=== PATIENT | male | born 1965 | race Caucasian/White ===

== ENCOUNTER → 2016-04-29 | Outpatient (CLI) | payer OTHER ==
[~2016-04-29] MED LIST: /QUET10TA; ALBU17IN INH; AMBI10TA PO; AMOX875T2 PO; CILO0.3S AS; DARV65CA; DEPA1TAB3 PO; DILA100C; DILA100C PO; FLEXERIL; HYDR25T PO; NAPR500T; PROV90AE; SERO1TAB PO; SERO1TAB2 PO; SERO400T PO; TYLETAB14 PO; VICO5TAB
--- NOTE | 2016-04-29 15:57 | REP ---
PET/CT: History: Initial staging adenocarcinoma of the lung. Comparison: Comparison chest CT study is from November 22, 2015. TECHNIQUE: 84 minutes following the intravenous injection of a 8.2 mCi dose of F-18 FDG, three-dimensional PET scintigraphy is acquired from the skull base to the proximal thighs. Triplanar noncontrast CT scanning is acquired through the same anatomic range for attenuation correction, and image registration with scan parameters optimized to minimize radiation exposure to the patient. PET scintigraphy and CT datasets were fused and displayed on a workstation with multiplanar and projection display capability. PET/CT Findings: The known right middle lobe lung mass is hypermetabolic. Maximum standard uptake value in the right middle lobe mass is 11.0. There is a small focus of sadiq hypermetabolic uptake in the right hilus with maximum standard uptake value 3.3. This corresponds to the 13 mm lymph node seen in the right hilus on chest CT study. There is mildly hypermetabolic sadiq uptake in a normal sized lymph node in the left axilla. Maximum standard uptake value in this lymph node is 3.6. There is mildly hypermetabolic uptake in the small nodule in the right lower lobe just above the right diaphragm. This nodule measures only 7 mm in diameter. Its maximum standard uptake value is 2.6. No other hypermetabolic uptake is seen. No abnormal adrenal uptake is seen. FDG is distributed normally in the abdomen and pelvis. Impression: Hypermetabolic uptake is noted in the known mass in the right middle lobe as well as in a small right hilar lymph node, a normal sized left axillary lymph node, and mildly increased uptake is seen in the small nodule in the right lower lobe of the lung as well. This nodule appears more prominent than at the time of the November 22, 2015 prior study. Signed by Asher Rosario MD 04/29/2016 08:14 P
== END ==
LOC: M RAD 07:22
PROVIDERS: ATTEND Internal Medicine Pulmonary Disease
DX: C34.2 Malignant neoplasm of middle lobe, bronchus or lung (principal)

== ENCOUNTER → 2016-05-14 | Outpatient (REF) | payer OTHER | LOC: M LAB REF 13:12 | PROVIDERS: ATTEND Physician Assistant Medical | DX: H92.12 Otorrhea, left ear (principal) ==

== ENCOUNTER → 2016-05-22 | Outpatient (CLI) | payer OTHER ==
--- NOTE | 2016-05-22 08:02 | REP ---
Clinical: Lung cancer. Follow-up. Comparison: 01/15/2016. Findings: A spiculated mass in the right middle lobe now measures approximately 3.1 cm maximal diameter and previously measured 2.8 cm maximal diameter. Multiple small nodules are also identified in the deep posterior right lower lobe measuring up to 9 mm diameter and have increased in both size and quantity from prior examination suspicious for metastatic disease/satellite lesions. Minimal scarring in the lingula, left lower lobe and basilar right middle lobe are also identified. No pleural effusion/reaction. Mild bullous/emphysematous changes are noted. The tracheobronchial tree is patent. Hilar/mediastinal adenopathy is suggested although incompletely evaluated due to the lack of intravenous contrast enhancement. Atherosclerotic changes to the coronary arteries remains stable. No pericardial effusion identified. Thoracic aorta demonstrates atherosclerotic changes without aneurysm. Surrounding musculoskeletal structures demonstrate age-related degenerative change. Upper abdomen demonstrates normal bilateral adrenal glands. Impression: 1. Spiculated primary lesion in the right middle lobe minimally increased in size from prior examination. Smaller presumed metastatic/satellite lesions at the right lung base measuring up to 9 mm have increased in both size and quantity. Mediastinal/hilar adenopathy is suggested although incompletely evaluated due to the lack of contrast. Signed by Fletcher Reddy MD 05/22/2016 07:53 A
== END ==
LOC: M RAD 06:36
PROVIDERS: ATTEND Thoracic Surgery (Cardiothoracic Vascular Surgery)
DX: Z01.818 Encounter for other preprocedural examination (principal); C34.2 Malignant neoplasm of middle lobe, bronchus or lung

== ENCOUNTER → 2016-05-22 | Outpatient (CLI) | payer OTHER ==
[2016-05-22 15:35] LABS: ABG BASE EXCESS 1.5 (-2.0-2.0); ABG HCO3 25.5 MEQ/L (22.0-26.0); ABG PARTIAL PRESSURE CO2 38.1 mmHg (35.0-45.0); ABG PARTIAL PRESSURE O2 68.3 mmHg (75.0-100.0); ABG STANDARD HCO3 25.7 MEQ/L (22.0-26.0); ABG TOTAL CO2 26.6 MEQ/L (22.0-29.0); ABG pH (ARTERIAL) 7.443 UNITS (7.350-7.450)
[2016-05-22 15:42] LABS: MEAN CORPUSCULAR HEMOGLOBIN 33.4 pg (27.0-33.0); MEAN CORPUSCULAR HGB CONC 33.4 g/dl (32.0-36.5); RED CELL DISTRIBUTION WIDTH 12.4 % (11.5-14.5)
[2016-05-22 15:46] LABS: MICROSCOPIC INDICATED? MAN NO (NO)
[2016-05-22 15:52] LABS: INR 1.02
--- NOTE | 2016-05-22 15:57 | ECGEPIP ---
Stationary ECG Study [facility] Test Date: 2016-05-22 Pat Name: COLLEEN NOWAK Department: Room: - Gender: M [employer]: : 1965 Requested By: Pa Robison Order Number: [id number] Reading MD: Jojo Harley Measurements Intervals [place] Rate: 88 P: 77 CT: 144 QRS: 77 QRSD: 94 T: 45 QT: 353 QTc: 429 Interpretive Statements SINUS RHYTHM WITH MARKED SINUS ARRHYTHMIA POSSIBLE LEFT ATRIAL ENLARGEMENT NO PRIOR Electronically Signed On 05-22-2016 15:56:55 EST by Jojo Harley
[2016-05-22 16:26] LABS: ALBUMIN/GLOBULIN RATIO 1.25 (1.00-1.93); ALKALINE PHOSPHATASE 71 U/L (45-117); ALT/SGPT 24 U/L (12-78); ANION GAP 11 MEQ/L (8-16); AST/SGOT 19 U/L (15-37); BILIRUBIN,TOTAL 0.5 MG/DL (0.2-1.0); BLOOD UREA NITROGEN 10 MG/DL (7-18); CARBON DIOXIDE LEVEL 25 MEQ/L (21-32); CHLORIDE LEVEL 102 MEQ/L (98-107); CREATININE FOR GFR 0.76 MG/DL (0.70-1.30); GLOMERULAR FILTRATION RATE > 60.0 (>56); GLUCOSE, FASTING 77 MG/DL (70-105); POTASSIUM SERUM 3.7 MEQ/L (3.5-5.1); SODIUM LEVEL 138 MEQ/L (136-145); TOTAL PROTEIN 7.2 GM/DL (6.4-8.2)
== END ==
LOC: M LAB 14:49
PROVIDERS: ATTEND Thoracic Surgery (Cardiothoracic Vascular Surgery)
DX: Z01.818 Encounter for other preprocedural examination (principal); C34.2 Malignant neoplasm of middle lobe, bronchus or lung; R94.31 Abnormal electrocardiogram [ECG] [EKG]

== ENCOUNTER → 2016-05-26 | Outpatient (CLI) | payer OTHER ==
[~2016-05-26] VITALS: Ht 182.9 cm; Wt 70.3 kg
[~2016-05-26] MED LIST changes: +BUPIVACAINE HCL 0.5% 10 ML VIAL As Ordered ONE; +BUPIVACAINE LIPOSOME/PF 1.3% 20 ML VIAL (13.3MG/ML)(EXPAREL) As Ordered ONE; +LR 1,000 ML IV SCH; +MUPIROCIN 2% OINT 22 GM TUBE TOP ONE; +ceFAZolin SOD 1 GM in D5W MINI-BAG PLUS 50 ML IV ONE
--- NOTE | 2016-05-26 08:20 | REP ---
Clinical: History of pulmonary lobectomy. Technique: PA and lateral. Comparison: 04/09/2016. Findings: There is a 3.5 x 2.0 cm ovoid density in the right mid lung zone inferior to the surgical clips. The remainder of lung reese appear relatively well aerated. Blunting to the left diaphragmatic surface likely related to prior surgery and/or chronic changes. Mediastinum and cardiac silhouette appear normal. Skeletal structures intact. Impression: 3.5 x 2.0 cm ovoid density in the right mid lung zone. Signed by Fletcher Reddy MD 05/26/2016 08:11 A
== END ==
LOC: M RAD 07:09 → UNDOADMIN 07:09 → M OR 07:09 → EDSTATUS 09:15
PROVIDERS: ATTEND Thoracic Surgery (Cardiothoracic Vascular Surgery)
DX: C34.91 Malignant neoplasm of unspecified part of right bronchus or lung (principal); Z90.2 Acquired absence of lung [part of]

== ENCOUNTER → 2016-06-03 | Outpatient (CLI) | payer OTHER ==
[~2016-06-03] MED LIST changes: -BUPIVACAINE HCL 0.5% 10 ML VIAL As Ordered ONE; -BUPIVACAINE LIPOSOME/PF 1.3% 20 ML VIAL (13.3MG/ML)(EXPAREL) As Ordered ONE; -LR 1,000 ML IV SCH; -MUPIROCIN 2% OINT 22 GM TUBE TOP ONE; -ceFAZolin SOD 1 GM in D5W MINI-BAG PLUS 50 ML IV ONE
[2016-06-03 08:05] LABS: ABG BASE EXCESS 0.4 (-2.0-2.0); ABG HCO3 24.7 MEQ/L (22.0-26.0); ABG PARTIAL PRESSURE CO2 38.8 mmHg (35.0-45.0); ABG PARTIAL PRESSURE O2 106.2 mmHg (75.0-100.0); ABG STANDARD HCO3 24.9 MEQ/L (22.0-26.0); ABG TOTAL CO2 25.9 MEQ/L (22.0-29.0); ABG pH (ARTERIAL) 7.422 UNITS (7.350-7.450); CARBOXYHEMOGLOBIN 7.6 % (0.0-1.5)
== END ==
LOC: M CARPUL 07:40
PROVIDERS: ATTEND Thoracic Surgery (Cardiothoracic Vascular Surgery)
DX: C34.2 Malignant neoplasm of middle lobe, bronchus or lung (principal); F17.218 Nicotine dependence, cigarettes, with other nicotine-induced disorders

== ENCOUNTER → 2016-06-24 | Outpatient (CLI) | payer OTHER ==
[2016-06-24 09:09] LABS: ALBUMIN 3.9 GM/DL (3.2-5.2); ALBUMIN/GLOBULIN RATIO 1.26 (1.00-1.93); ALKALINE PHOSPHATASE 56 U/L (45-117); ALT/SGPT 27 U/L (12-78); ANION GAP 11 MEQ/L (8-16); AST/SGOT 29 U/L (15-37); BILIRUBIN,TOTAL 0.2 MG/DL (0.2-1.0); BLOOD UREA NITROGEN 8 MG/DL (7-18); CALCIUM LEVEL 8.8 MG/DL (8.5-10.1); CARBON DIOXIDE LEVEL 25 MEQ/L (21-32); CHLORIDE LEVEL 103 MEQ/L (98-107); CREATININE FOR GFR 0.63 MG/DL (0.70-1.30); GLOMERULAR FILTRATION RATE > 60.0 (>56); GLUCOSE, FASTING 117 MG/DL (70-105); POTASSIUM SERUM 4.4 MEQ/L (3.5-5.1); SODIUM LEVEL 139 MEQ/L (136-145)
[2016-06-24 09:19] LABS: MEAN CORPUSCULAR HEMOGLOBIN 33.1 pg (27.0-33.0); MEAN CORPUSCULAR HGB CONC 33.2 g/dl (32.0-36.5); MEAN CORPUSCULAR VOLUME 99.5 fl (80.0-96.0); WHITE BLOOD COUNT 6.1 K/mm3 (4.0-10.0)
[2016-06-24 09:25] LABS: MICROSCOPIC INDICATED? MAN NO (NO)
[2016-06-24 09:26] LABS: INR 0.95
== END ==
LOC: M LAB 07:58
PROVIDERS: ATTEND Thoracic Surgery (Cardiothoracic Vascular Surgery)
DX: C34.2 Malignant neoplasm of middle lobe, bronchus or lung (principal); J44.9 Chronic obstructive pulmonary disease, unspecified; F17.218 Nicotine dependence, cigarettes, with other nicotine-induced disorders; Z01.818 Encounter for other preprocedural examination

== ENCOUNTER → 2016-07-08 | Outpatient (CLI) | payer OTHER ==
[2016-07-08 08:09] LABS: ABG BASE EXCESS 0.8 (-2.0-2.0); ABG HCO3 24.6 MEQ/L (22.0-26.0); ABG PARTIAL PRESSURE CO2 37.1 mmHg (35.0-45.0); ABG PARTIAL PRESSURE O2 95.1 mmHg (75.0-100.0); ABG STANDARD HCO3 25.2 MEQ/L (22.0-26.0); ABG TOTAL CO2 25.8 MEQ/L (22.0-29.0)
== END ==
LOC: M CARPUL 07:38
PROVIDERS: ATTEND Thoracic Surgery (Cardiothoracic Vascular Surgery)
DX: C34.2 Malignant neoplasm of middle lobe, bronchus or lung (principal); F17.218 Nicotine dependence, cigarettes, with other nicotine-induced disorders; Z01.812 Encounter for preprocedural laboratory examination

== ENCOUNTER → 2016-07-14 | Outpatient (CLI) | payer OTHER ==
--- NOTE | 2016-07-14 09:37 | REP ---
CT of the chest without IV contrast: Comparison is 11/22/2015. The the patient has a known right middle lobe mass today measuring 3.2 x 2.8 centimeters on image 57 (previously 2.9 x 2.3 cm). Additionally there are at least eight small nodules in the deep posterior sulcus of the right lung today, not present previously, ranging from 5 mm to 9 mm in size. There is a 6 mm nodule along the major fissure on the right on image 47, not present previously. No other lung nodules or masses are identified. There are no acute infiltrates or effusions. There is linear scarring in the deep sulcus of the left lower lobe, right middle lobe and inferior tip of the lingula. This is unchanged. There is a large subcarinal mediastinal node measuring 17 mm today (9 mm previously). There are a few other nonenlarged mediastinal nodes, not significantly changed. On the comparison study there was right hilar lymph node enlargement. The current study is insensitive for evaluation of hilar nodes in the absence of IV contrast. There are a few surgical benny in the right lung, superior and slightly posterior to the right lung mass as an interval change. The unenhanced thoracic aorta is unremarkable. Cardiac size is normal. There is no pericardial effusion. Upper abdomen: There is no adrenal mass. Visualized portions of the unenhanced liver, gallbladder, pancreas and spleen are unremarkable. Impression: The right middle lobe mass has increased in size. There are least nine new small nodules in the deep sulcus of the right lower lobe. There are a few surgical benny in the right mid lung as an interval change. The subcarinal nodes have increased in size. The right hilar nodes cannot be assessed in the absence of IV contrast. Signed by Manuel Jesus MD 07/14/2016 09:27 A
== END ==
LOC: M RAD 07:17
PROVIDERS: ATTEND Thoracic Surgery (Cardiothoracic Vascular Surgery)
DX: C34.2 Malignant neoplasm of middle lobe, bronchus or lung (principal)

== ENCOUNTER → 2016-07-17 | Outpatient (CLI) | payer OTHER ==
[2016-07-17 12:44] LABS: ABG BASE EXCESS -0.6 (-2.0-2.0); ABG HCO3 23.3 MEQ/L (22.0-26.0); ABG PARTIAL PRESSURE CO2 36.4 mmHg (35.0-45.0); ABG PARTIAL PRESSURE O2 87.4 mmHg (75.0-100.0); ABG TOTAL CO2 24.5 MEQ/L (22.0-29.0); ABG pH (ARTERIAL) 7.425 UNITS (7.350-7.450)
--- NOTE | 2016-07-17 13:42 | REP ---
PA and lateral chest: Comparisons are the PA and lateral chest of 05/26/[address] of 07/14/2016. The patient's known right lung mass is again identified, not significantly changed. There to surgical clips in the right upper lobe, unchanged. There is chronic effacement of the left costophrenic angle, unchanged. There are no acute infiltrates or effusions. By CT of least nine in new small nodules were noted in the deep posterior sulcus of the right lower lobe. These are not visible on the PA and lateral views of the chest. Impression: There are no acute infiltrates or effusions. The patient's known right lung mass is again identified. There i chronic effacement of the left costophrenic angle, unchanged. Signed by Manuel Jesus MD 07/17/2016 01:33 P
[2016-07-17 13:48] LABS: MEAN CORPUSCULAR HEMOGLOBIN 33.1 pg (27.0-33.0); MEAN CORPUSCULAR HGB CONC 32.7 g/dl (32.0-36.5); MEAN CORPUSCULAR VOLUME 101.2 fl (80.0-96.0); RED CELL DISTRIBUTION WIDTH 13.4 % (11.5-14.5); WHITE BLOOD COUNT 6.2 K/mm3 (4.0-10.0)
[2016-07-17 13:51] LABS: INR 0.97
[2016-07-17 13:58] LABS: ANION GAP 6 MEQ/L (8-16); BLOOD UREA NITROGEN 10 MG/DL (7-18); CALCIUM LEVEL 9.2 MG/DL (8.5-10.1); CARBON DIOXIDE LEVEL 31 MEQ/L (21-32); CHLORIDE LEVEL 103 MEQ/L (98-107); CREATININE FOR GFR 0.57 MG/DL (0.70-1.30); GLOMERULAR FILTRATION RATE > 60.0 (>56); GLUCOSE, FASTING 86 MG/DL (70-105); POTASSIUM SERUM 4.5 MEQ/L (3.5-5.1); SODIUM LEVEL 140 MEQ/L (136-145)
== END ==
LOC: EDSTATUS 07-10 11:00 → M ADMPAT 11:19
PROVIDERS: ATTEND Thoracic Surgery (Cardiothoracic Vascular Surgery)
DX: Z01.818 Encounter for other preprocedural examination (principal); C34.2 Malignant neoplasm of middle lobe, bronchus or lung

== ENCOUNTER → 2016-07-22 | Outpatient (CLI) | payer OTHER ==
[~2016-07-22] MED LIST changes: +PERCOCET PO
--- NOTE | 2016-07-23 08:41 | REP ---
PET/CT: HISTORY: Lung cancer restaging. Adenocarcinoma right middle lobe. Comparison PET-CT study April 29, 2016. Comparison CT examination of the chest July 14, 2016. TECHNIQUE: 58 minutes following the intravenous injection of a 7.6 mCi dose of F-18 FDG, three-dimensional PET scintigraphy is acquired from the skull base to the proximal thighs. Triplanar noncontrast CT scanning is acquired through the same anatomic range for attenuation correction, and image registration with scan parameters optimized to minimize radiation exposure to the patient. PET scintigraphy and CT datasets were fused and displayed on a workstation with multiplanar and projection display capability. PET/CT FINDINGS: The right middle lobe mass remains hypermetabolic, maximum standard uptake value today 13.4, previously 11.0. It measures 3.3 cm today. The previously noted sadiq focus in the right hilus is more prominent and more hypermetabolic on today's PET CT study. Maximum standard uptake value in the right hilar sadiq focus is 9.4, previously 3.3. The 9 mm nodule medially in the right lower lobe shows mildly hypermetabolic uptake today, maximum standard uptake value 3.1. This is increased in size from the prior study. The FDG accumulation is a new finding. Multiple small nodules are again seen in the right lower lobe. These are more numerous and more prominent in size. The largest of these has maximum SUV value of 2.7, which is mildly hypermetabolic. It measures 8 mm in diameter. There is a biopsy marker clip in the right upper lobe as before. No other intrathoracic hypermetabolic uptake is seen. Head and neck soft tissues are unremarkable. No abnormal adrenal FDG accumulation is seen. No abnormal uptake is seen in the abdomen or pelvis. The previously noted left axillary sadiq uptake is resolved. IMPRESSION: Hypermetabolic uptake in right middle lobe mass, a right hilar metastatic node, and in at least two of the multiple right lower lobe pulmonary nodules. These have progressed in size and number. Signed by Asher Rosario MD 07/23/2016 01:09 P
== END ==
LOC: M RAD 16:20
PROVIDERS: ATTEND Thoracic Surgery (Cardiothoracic Vascular Surgery)
DX: C34.2 Malignant neoplasm of middle lobe, bronchus or lung (principal); R22.2 Localized swelling, mass and lump, trunk
CPT/HCPCS: 78815; A9552

== ENCOUNTER → 2016-08-03 | Outpatient (CLI) | payer OTHER ==
--- NOTE | 2016-08-03 08:38 | REP ---
Clinical: Right middle lobe malignancy. Technique: PA and lateral. Comparison: 07/27/2016. Findings: Ovoid lesion in the right middle lobe is unchanged. Superior to the lesion are two surgical clips able in position. Blunting to the bilateral diaphragmatic surfaces and costophrenic angles suggests acute / chronic pleural reactions. No pneumothorax. Mediastinum and cardiac silhouette stable. Skeletal structures intact. Impression: Ovoid lesion in the right middle lobe and blunting to the diaphragmatic surfaces/costophrenic angles similar to prior examination. Signed by Fletcher Reddy MD 08/03/2016 08:30 A
== END ==
LOC: M SMT 07:53
PROVIDERS: ATTEND Thoracic Surgery (Cardiothoracic Vascular Surgery)
DX: C34.2 Malignant neoplasm of middle lobe, bronchus or lung (principal); R91.8 Other nonspecific abnormal finding of lung field; J98.6 Disorders of diaphragm

== ENCOUNTER → 2016-09-10 | Outpatient (CLI) | payer OTHER ==
--- NOTE | 2016-09-11 02:04 | REP ---
Clinical: Malignancy. Technique: PA and lateral. Comparison: 08/03/2016. Findings: Rounded mass with adjacent subtle opacity in the right mid lung zone is similar in appearance to prior examination although may be minimally decreased in size. Remainder of the bilateral lung reese are stable and without further acute process. Postsurgical changes are appreciated. Mediastinum and cardiac silhouette normal. No pneumothorax. Skeletal structures intact. Impression: Rounded mass lesion with adjacent subtle opacity similar to prior examination although minimally decreased in size. Signed by Fletcher Reddy MD 09/11/2016 01:56 A
== END ==
LOC: M SMT 09:48
PROVIDERS: ATTEND Thoracic Surgery (Cardiothoracic Vascular Surgery)
DX: C34.2 Malignant neoplasm of middle lobe, bronchus or lung (principal)

== ENCOUNTER → 2016-10-19 | Outpatient (REF) | payer OTHER ==
[~2016-10-19] MED LIST changes: +HYDR-3363 PO; -HYDR25T PO
== END ==
LOC: M LAB REF 13:45
PROVIDERS: ATTEND Internal Medicine Medical Oncology
DX: C34.90 Malignant neoplasm of unspecified part of unspecified bronchus or lung (principal)

== ENCOUNTER → 2016-11-17 | Outpatient (CLI) | payer OTHER ==
[~2016-11-17] MED LIST changes: +ISOVUE-370 76% 100ML VIAL (Q9967) As Ordered ONE
--- NOTE | 2016-11-17 11:36 | REP ---
CT ABDOMEN AND PELVIS WITH AND WITHOUT CONTRAST: TECHNIQUE: Axial noncontrast images through the abdomen followed by contrast-enhanced images through the abdomen and pelvis using 100 mL Isovue 370 intravenous contrast material, with coronal and sagittal reformations. The liver, spleen, adrenals, pancreas and kidneys are normal in appearance with no mass. No renal or ureteral calculi are seen and there is no hydroureteronephrosis. There is no abdominal aortic aneurysm with mild to moderate scattered atherosclerotic calcifications. There is no significant adenopathy in the abdomen or pelvis. No free air or free fluid is seen. No bowel wall thickening is seen. No pelvic mass is seen. The urinary bladder appears unremarkable. IMPRESSION: Negative CT abdomen and pelvis with and without contrast. Signed by Manuel Pena MD 11/17/2016 11:59 A
--- NOTE | 2016-11-17 11:41 | REP ---
CT CHEST WITH IV CONTRAST: TECHNIQUE: Axial contrast enhanced images from the thoracic inlet to the upper abdomen using 100 mL Isovue 370 intravenous contrast material with multiplanar reformations. COMPARISON: 07/14/2016 The irregularly marginated oval parenchymal opacity in the right middle lobe region has decreased in size since the prior exam with a more concave anterior and superior margin. It measures approximately 1.2 x 2.4 x 2.8 cm, previously 1.6 x 2.8 x 3.3 cm. It appears somewhat less solid compared to the prior study. The previously noted medially located 9 mm nodule in the superior segment of the right lower lobe is no longer visualized. Suture line is seen in the right posterolateral costophrenic sulcus presumably following wedge resection for multiple nodules previously seen in that region. There are scattered linear areas of parenchymal scarring. No new nodules are seen in either lung. Subcentimeter lymph nodes are seen in both axillary regions. Severe subcentimeter mediastinal lymph nodes are also seen. There is a 1 cm subcarinal lymph node and a 1.3 cm right hilar lymph node which are both stable. The heart is not enlarged. There is no pleural or pericardial effusion. There is no thoracic aortic aneurysm with mild scattered atherosclerotic calcifications. There are degenerative changes of the spine. IMPRESSION: The patient appears to be status post wedge resection of multiple small nodules in the right lower lobe, posterolateral costophrenic sulcus with a suture line seen in that region. The previously noted oval parenchymal mass-like opacity in the right middle lobe appears less solid and has diminished in size. Previously noted nodule in the superior segment of the right lower lobe is no longer visualized. No new nodules or adenopathy are seen. Signed by Manuel Pena MD 11/17/2016 12:00 P
== END ==
LOC: M RAD 10:13
PROVIDERS: ATTEND Internal Medicine Medical Oncology
DX: C34.90 Malignant neoplasm of unspecified part of unspecified bronchus or lung (principal); Z90.2 Acquired absence of lung [part of]; R91.8 Other nonspecific abnormal finding of lung field
CPT/HCPCS: 71260; 74178; Q9967

== ENCOUNTER → 2016-12-02 | Outpatient (REF) | payer OTHER ==
[~2016-12-02] MED LIST changes: -ISOVUE-370 76% 100ML VIAL (Q9967) As Ordered ONE
== END ==
LOC: M LAB REF 14:07
PROVIDERS: ATTEND Internal Medicine Medical Oncology
DX: C34.90 Malignant neoplasm of unspecified part of unspecified bronchus or lung (principal)

== ENCOUNTER → 2016-12-23 | Outpatient (REF) | payer OTHER ==
[2016-12-23 13:53] LABS: INR 0.93
== END ==
LOC: M LAB REF 12:46
PROVIDERS: ATTEND Internal Medicine Medical Oncology
DX: C34.90 Malignant neoplasm of unspecified part of unspecified bronchus or lung (principal)

== ENCOUNTER → 2016-12-28 | Outpatient (CLI) | payer OTHER ==
[2016-12-28 10:56] LABS: MEAN CORPUSCULAR HEMOGLOBIN 38.3 pg (27.0-33.0); MEAN CORPUSCULAR HGB CONC 35.6 g/dl (32.0-36.5); MEAN CORPUSCULAR VOLUME 107.5 fl (80.0-96.0); RED CELL DISTRIBUTION WIDTH 12.9 % (11.5-14.5); WHITE BLOOD COUNT 8.2 K/mm3 (4.0-10.0)
[2016-12-28 11:14] LABS: ANION GAP 9 MEQ/L (8-16); BLOOD UREA NITROGEN 5 MG/DL (7-18); CALCIUM LEVEL 9.1 MG/DL (8.5-10.1); CARBON DIOXIDE LEVEL 31 MEQ/L (21-32); CHLORIDE LEVEL 97 MEQ/L (98-107); CREATININE FOR GFR 0.59 MG/DL (0.70-1.30); GLOMERULAR FILTRATION RATE > 60.0 (>56); GLUCOSE, FASTING 93 MG/DL (70-105); POTASSIUM SERUM 3.5 MEQ/L (3.5-5.1); SODIUM LEVEL 137 MEQ/L (136-145)
--- NOTE | 2016-12-28 11:31 | REP ---
PA and lateral chest: Comparison is 09/10/2016. There is a right middle lobe lung nodule today measuring 10 mm craniocaudad (previously 15 mm craniocaudad). There is linear stranding emanating from the medial lateral borders of this nodule obscuring these borders. 2. Tiny surgical clips in the right upper lobe, as previously. There are no acute infiltrates. There is mild effacement right costophrenic angle and is effacement left costophrenic angle. These findings are unchanged. Cardiac size is normal. The sandy, mediastinum, and bony thorax are changed. Impression: The patient's known right middle lobe lung nodule appears to have decreased in craniocaudad diameter. The medial lateral margins are obscured by linear stranding. There are other chronic changes as described. Signed by Manuel Jesus MD 12/28/2016 11:23 A
--- NOTE | 2016-12-28 21:42 | ECGEPIP ---
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
== END ==
LOC: M LAB 10:01
PROVIDERS: ATTEND Thoracic Surgery (Cardiothoracic Vascular Surgery)
DX: Z01.818 Encounter for other preprocedural examination (principal); C34.90 Malignant neoplasm of unspecified part of unspecified bronchus or lung

== ENCOUNTER 2017-01-01 09:33 | Day surgery (SDC) | payer OTHER ==
[~2017-01-01] VITALS: Ht 182.9 cm; Wt 76.7 kg
[2017-01-01] MEDS ORDERED: LIDOCAINE 1% MDV 20ML VIAL SQ ONE (09:45)
[2017-01-01] MEDS ORDERED: LR 1,000 ML IV ONE (09:45)
[2017-01-01] MEDS ORDERED: MUPIROCIN 2% OINT 22 GM TUBE TOP ONE (09:45)
[2017-01-01] MEDS ORDERED: MIDAZOLAM INJ 2 MG/2 ML VIAL (J2250) As Ordered ONE (11:32)
[2017-01-01] MEDS ORDERED: fentaNYL 100 MCG/2 ML INJECTION (J3010) As Ordered ONE (11:33)
[2017-01-01] MEDS ORDERED: LIDOCAINE 1% SDV INJ 30 ML VIAL As Ordered ONE (11:40)
[2017-01-01] MEDS ORDERED: HEPARIN SOD (PORCINE) 5000 UNITS/ML VIAL As Ordered ONE (11:40)
[2017-01-01] MEDS ORDERED: BUPIVACAINE LIPOSOME/PF 1.3% 20 ML VIAL (13.3MG/ML)(EXPAREL) As Ordered ONE (11:40)
[2017-01-01] MEDS ORDERED: LIDOCAINE 2% INJ 100 MG/5 ML SDV (FOR ANES.) As Ordered ONE (12:44)
[2017-01-01] MEDS ORDERED: PROPOFOL 200 MG/20 ML VIAL As Ordered ONE (12:44)
[2017-01-01 13:35] VITALS: BP 162/91
--- NOTE | 2017-01-01 13:38 | REP ---
C-ARM VIEWS OF THE CHEST: Two C-arm views of the chest are performed during Medi-Port catheter placement. The Medi-Port catheter is visualized and the tip appears to be in the region of the junction of the superior vena cava and right atrium. 12 seconds fluoroscopy time utilized. Signed by Manuel Pena MD 01/01/2017 02:26 P
--- NOTE | 2017-01-01 13:40 | REP ---
PORTABLE CHEST: AP portable view of the chest is performed. COMPARISON: 12/28/2016. There is placement of a left sided Medi-Port catheter in the subclavian region with the tip of the catheter at the junction of the superior vena cava and right atrium. There is no pneumothorax. There is blunting of the left costophrenic angle which is unchanged. Ill-defined parenchymal opacities in the right lung base are stable. Cardiomediastinal silhouette is unchanged. Signed by Manuel Pena MD 01/01/2017 02:26 P
--- NOTE | 2017-01-01 14:43 | RO ---
DATE OF PROCEDURE: 01/01/2017 PREPROCEDURE DIAGNOSIS: Lung cancer, need for vascular access and chemotherapy. POSTPROCEDURE DIAGNOSIS: Lung cancer, need for vascular access and chemotherapy. PROCEDURE: Insertion of left subclavian [id number]-[id number] with fluoroscopic control. SURGEON: Dr. Pa Anne NAIL TECHNICIAN: ANESTHESIA: FINDINGS: All contours were smooth at the end of the procedure. Catheter was placed within the right atrium by fluoroscopic control. DESCRIPTION OF PROCEDURE: Under satisfactory MAC anesthesia, the patient was prepped and draped in the usual sterile fashion. The infraclavicular fossa was infiltrated with 1% lidocaine and the vein was found on the first pass. The wire was placed without difficulty and the position was confirmed by fluoroscopy. The port incision was decided and incision was made and a subcutaneous pocket created by use of electrocautery and sharp and blunt dissection. An introducer was then placed to dilate over the wire and then a peel-away introducer was placed. Wire was removed and the catheter was placed with low numbers down. The introducer was peeled away and a tunnel was created between the catheter site and the port site. Catheter was pulled through the tunnel and positioned by fluoroscopic control. The catheter was cut to an appropriate size, the collar was placed and connected the [id number]-[id number]-Srze. Mkujlq-O-Iaqf was aspirated and flushed without difficulty. [id number]-G-[id number] was then secured to the chest wall with two #2-0 silk sutures. A final flush was made, again aspirated and then flushed with 100 units per mL of heparin. The subcutaneous tissue was then closed with a running #3-0 Vicryl suture and the skin was closed with a running subcuticular #4-0 Monocryl suture. Patient tolerated the procedure well and let the operating room in satisfactory condition.
== END 2017-01-01 13:40 | disposition home or self-care (01) ==
LOC: M SDC 09:33
PROVIDERS: ATTEND Thoracic Surgery (Cardiothoracic Vascular Surgery)
DX: C34.90 Malignant neoplasm of unspecified part of unspecified bronchus or lung (principal); Z45.2 Encounter for adjustment and management of vascular access device; R06.02 Shortness of breath; R56.9 Unspecified convulsions; F31.9 Bipolar disorder, unspecified; Z79.899 Other long term (current) drug therapy
CPT/HCPCS: 36561; 71010; 76000; C1788

== ENCOUNTER → 2017-03-31 | Outpatient (REF) | payer OTHER | LOC: M LAB REF 13:03 | PROVIDERS: ATTEND Nurse Practitioner Women's Health | DX: H72.02 Central perforation of tympanic membrane, left ear (principal) ==

== ENCOUNTER → 2017-04-14 | Outpatient (CLI) | payer OTHER ==
[~2017-04-14] MED LIST changes: -/QUET10TA; -ALBU17IN INH; -AMBI10TA PO; -AMOX875T2 PO; -CILO0.3S AS; -DARV65CA; -DEPA1TAB3 PO; -DILA100C; -DILA100C PO; -FLEXERIL; +GASTROGRAFIN SOLUTION 30ML (Q9963) As Ordered; -HYDR-3363 PO; +ISOVUE-370 76% 100ML VIAL (Q9967) As Ordered; -NAPR500T; -PERCOCET PO; -PROV90AE; -SERO1TAB PO; -SERO1TAB2 PO; -SERO400T PO; -TYLETAB14 PO; -VICO5TAB
== END ==
LOC: M RAD 07:49
DX: C34.91 Malignant neoplasm of unspecified part of right bronchus or lung (principal); J90 Pleural effusion, not elsewhere classified
CPT/HCPCS: Q9963

== ENCOUNTER → 2017-04-27 | Outpatient (REF) | payer OTHER | LOC: M LAB REF 13:27 | DX: C34.90 Malignant neoplasm of unspecified part of unspecified bronchus or lung (principal) ==

== ENCOUNTER → 2017-05-18 | Outpatient (REF) | payer OTHER ==
[2017-05-18 15:55] LABS: CARCINOEMBRYONIC ANTIGEN 1.3 NG/ML (<2.5)
== END ==
LOC: M LAB REF 13:51
DX: C34.90 Malignant neoplasm of unspecified part of unspecified bronchus or lung (principal)

== ENCOUNTER → 2017-06-14 | Outpatient (CLI) | payer OTHER ==
[~2017-06-14] MED LIST changes: -GASTROGRAFIN SOLUTION 30ML (Q9963) As Ordered
== END ==
LOC: M RAD 07:05
DX: C34.90 Malignant neoplasm of unspecified part of unspecified bronchus or lung (principal); J90 Pleural effusion, not elsewhere classified
CPT/HCPCS: Q9967

== ENCOUNTER → 2017-06-24 | Outpatient (REF) | payer OTHER ==
[2017-06-24 13:35] LABS: INR 0.86; PROTHROMBIN TIME 11.8 SECONDS (12.4-14.5)
[2017-06-24 13:36] LABS: PARTIAL THROMBOPLASTIN TIME 30.1 SECONDS (26.8-37.9)
== END ==
LOC: M LAB REF 13:11
DX: C34.90 Malignant neoplasm of unspecified part of unspecified bronchus or lung (principal)

== ENCOUNTER 2017-07-01 03:43 | Emergency (ER) | payer OTHER ==
[2017-07-01 04:14] LABS: BASO # 0.1 10^3/uL (0.0-0.2); BASO % 0.7 % (0.0-1.0); EOS # 0.1 10^3/uL (0.0-0.50); EOS % 0.9 % (0.0-3.0); HEMATOCRIT 42.6 % (42.0-52.0); HEMOGLOBIN 15.2 g/dl (14.0-18.0); IMMATURE GRANULOCYTE % 0.5 % (0-3.0); LYMPH # 1.2 10^3/uL (1.5-4.5); LYMPH % 15.8 % (24.0-44.0); MEAN CORPUSCULAR HEMOGLOBIN 35.4 pg (27.0-33.0); MEAN CORPUSCULAR HGB CONC 35.7 g/dl (32.0-36.5); MEAN CORPUSCULAR VOLUME 99.3 fl (80.0-96.0); MONO # 0.7 10^3/uL (0.0-0.8); MONO % 8.7 % (0.0-5.0); NEUTROPHILS # 5.5 10^3/uL (1.8-7.7); NEUTROPHILS % 73.4 % (36.0-66.0); PLATELET COUNT, AUTOMATED 247 10^3/uL (150-450); RED BLOOD COUNT 4.29 10^6/uL (4.30-6.10); RED CELL DISTRIBUTION WIDTH 11.9 % (11.5-14.5); WHITE BLOOD COUNT 7.6 10^3/uL (4.0-10.0)
[2017-07-01 04:24] LABS: INR 0.87; PROTHROMBIN TIME 11.9 SECONDS (12.4-14.5)
[2017-07-01 04:40] LABS: ALBUMIN 3.8 GM/DL (3.2-5.2); ALBUMIN/GLOBULIN RATIO 0.86 (1.00-1.93); ALKALINE PHOSPHATASE 110 U/L (45-117); ALT/SGPT 29 U/L (12-78); ANION GAP 11 MEQ/L (8-16); AST/SGOT 29 U/L (7-37); BILIRUBIN,DIRECT 0.2 MG/DL (0.0-0.2); BILIRUBIN,TOTAL 0.5 MG/DL (0.2-1.0); BLOOD UREA NITROGEN 7 MG/DL (7-18); CALCIUM LEVEL 9.1 MG/DL (8.5-10.1); CARBON DIOXIDE LEVEL 25 MEQ/L (21-32); CHLORIDE LEVEL 101 MEQ/L (98-107); CPK CREATINE PHOSPHOKINASE 58 U/L (39-308); CREATININE FOR GFR 0.55 MG/DL (0.70-1.30); GLOMERULAR FILTRATION RATE > 60.0 (>56); GLUCOSE, FASTING 96 MG/DL (70-100); LIPASE 97 U/L (73-393); POTASSIUM SERUM 3.8 MEQ/L (3.5-5.1); SODIUM LEVEL 137 MEQ/L (136-145); TOTAL PROTEIN 8.2 GM/DL (6.4-8.2); TROPONIN I < 0.02 NG/ML (< 0.10)
[2017-07-01 04:45] LABS: CK-MB VALUE MASS < 1.0 NG/ML (<3.6); MB/CK RELATIVE INDEX 1.72 (< OR =4)
[2017-07-01] MEDS ORDERED: ISOVUE-370 76% 100ML VIAL (Q9967) As Ordered (05:32)
== END 2017-07-01 07:21 | disposition home or self-care (01) ==
LOC: M ED 03:43
DX: J90 Pleural effusion, not elsewhere classified (principal); J44.9 Chronic obstructive pulmonary disease, unspecified; K21.9 Gastro-esophageal reflux disease without esophagitis; F20.9 Schizophrenia, unspecified; F41.9 Anxiety disorder, unspecified; Z85.118 Personal history of other malignant neoplasm of bronchus and lung; Z79.899 Other long term (current) drug therapy; Z92.21 Personal history of antineoplastic chemotherapy; Z87.891 Personal history of nicotine dependence
CPT/HCPCS: Q9967

== ENCOUNTER → 2017-07-02 | Outpatient (CLI) | payer OTHER ==
[~2017-07-02] MED LIST changes: +ACETAMINOPHEN 325 MG TAB As Ordered; -ISOVUE-370 76% 100ML VIAL (Q9967) As Ordered; +LIDOCAINE 1% MDV 20ML VIAL As Ordered
== END ==
LOC: M RADPRO 12:13
DX: J90 Pleural effusion, not elsewhere classified (principal); Z85.118 Personal history of other malignant neoplasm of bronchus and lung; Z79.899 Other long term (current) drug therapy
CPT/HCPCS: 32555

== ENCOUNTER → 2017-09-20 | Outpatient (REF) | payer OTHER, MEDICAID | LOC: M LAB REF 13:01 | DX: H92.12 Otorrhea, left ear (principal); H66.92 Otitis media, unspecified, left ear ==

== ENCOUNTER → 2017-10-19 | Outpatient (REF) | payer OTHER ==
[2017-10-19 14:09] LABS: CARCINOEMBRYONIC ANTIGEN 0.5 NG/ML (<2.5)
== END ==
LOC: M LAB REF 13:41
DX: C78.02 Secondary malignant neoplasm of left lung (principal); C34.91 Malignant neoplasm of unspecified part of right bronchus or lung; J91.0 Malignant pleural effusion
CPT/HCPCS: 82378

== ENCOUNTER → 2017-10-27 | Outpatient (REF) | payer OTHER | LOC: M LAB REF 14:02 | DX: C34.91 Malignant neoplasm of unspecified part of right bronchus or lung (principal) ==

== ENCOUNTER → 2017-11-09 | Outpatient (REF) | payer OTHER ==
[2017-11-09 14:23] LABS: CARCINOEMBRYONIC ANTIGEN 0.5 NG/ML (<2.5)
== END ==
LOC: M LAB REF 13:35
DX: C78.02 Secondary malignant neoplasm of left lung (principal); C34.91 Malignant neoplasm of unspecified part of right bronchus or lung; J91.0 Malignant pleural effusion
CPT/HCPCS: 82378

== ENCOUNTER → 2017-11-12 | Outpatient (CLI) | payer OTHER ==
[~2017-11-12] MED LIST changes: -ACETAMINOPHEN 325 MG TAB As Ordered; +GASTROGRAFIN SOLUTION 30ML (Q9963) As Ordered; +ISOVUE-370 76% 100ML VIAL (Q9967) As Ordered; -LIDOCAINE 1% MDV 20ML VIAL As Ordered
== END ==
LOC: M RAD 07:58
DX: C34.90 Malignant neoplasm of unspecified part of unspecified bronchus or lung (principal); D18.03 Hemangioma of intra-abdominal structures
CPT/HCPCS: Q9963

== ENCOUNTER → 2017-11-30 | Outpatient (REF) | payer OTHER ==
[2017-11-30 14:03] LABS: CARCINOEMBRYONIC ANTIGEN 0.9 NG/ML (<2.5)
== END ==
LOC: M LAB REF 13:16
DX: C78.02 Secondary malignant neoplasm of left lung (principal); C34.91 Malignant neoplasm of unspecified part of right bronchus or lung; J91.0 Malignant pleural effusion; L27.0 Generalized skin eruption due to drugs and medicaments taken internally
CPT/HCPCS: 82378

== ENCOUNTER → 2017-12-02 | Outpatient (REF) | payer OTHER | LOC: M LAB REF 12:20 | DX: H92.12 Otorrhea, left ear (principal) ==

== ENCOUNTER → 2017-12-31 | Outpatient (REF) | payer OTHER | LOC: M LAB REF 12:03 | DX: H66.3X2 Other chronic suppurative otitis media, left ear (principal) ==

== ENCOUNTER → 2018-01-18 | Outpatient (CLI) | payer OTHER ==
[~2018-01-18] MED LIST changes: -GASTROGRAFIN SOLUTION 30ML (Q9963) As Ordered
== END ==
LOC: M RAD 07:51
DX: C34.91 Malignant neoplasm of unspecified part of right bronchus or lung (principal); R59.0 Localized enlarged lymph nodes; J90 Pleural effusion, not elsewhere classified
CPT/HCPCS: Q9967

== ENCOUNTER → 2018-03-15 | Outpatient (CLI) | payer OTHER | LOC: M RAD 11:16 | DX: R06.09 Other forms of dyspnea (principal); R07.89 Other chest pain; J90 Pleural effusion, not elsewhere classified; J84.10 Pulmonary fibrosis, unspecified; R91.8 Other nonspecific abnormal finding of lung field | CPT/HCPCS: Q9967 ==

== ENCOUNTER → 2018-03-25 | Outpatient (CLI) | payer OTHER ==
[~2018-03-25] MED LIST changes: +/QUET10TA; +ALBU17IN INH; +AMBI10TA PO; +AMOX875T2 PO; +CILO0.3S AS; +DARV65CA; +DEPA1TAB3 PO; +DEXA4TA; +DEXA4TA PO; +DILA100C; +DILA100C PO; +DOXY100T16 PO; +FLEXERIL; +HYDR-3363 PO; +IBUP1TAB7 PO; +IBUP80TA PO; -ISOVUE-370 76% 100ML VIAL (Q9967) As Ordered; +NAPR500T; +NEOM1SOL17 AD; +OXYC-517; +PERCOCET PO; +PROHANCE 279.3MG/ML 15ML VIAL (A9576) As Ordered ONE; +PROV90AE; +SERO1TAB PO; +SERO1TAB2 PO; +SERO400T PO; +TYLETAB14 PO; +VENTAER INH; +VICO5TAB; +ZANTTAB PO; +ZOLP10TA2 PO
--- NOTE | 2018-03-25 16:19 | REP ---
MR BRAIN WITHOUT AND WITH CONTRAST: HISTORY: Lung carcinoma. CONTRAST: ProHance 15 mL. COMPARISON: 01/31/2016. Multiple enhancing nodular lesions are present in the cerebral hemispheres and cerebellum. These range in size from 0.1 to 1.7 cm. The largest supratentorial lesion present in the left parietal lobe measures 1.2 cm. The largest posterior fossa lesion in the left cerebellum measures 1.7 cm. A small amount of edema is present surrounding the larger lesions. There is no intraparenchymal hemorrhage, infarct or midline shift. The ventricular system and cortical sulci are dilated consistent with minimal volume loss. There is no extra cerebral collection. The sinuses are clear. IMPRESSION: There are multiple enhancing metastatic lesions in the cerebral hemispheres and cerebellum. There is no midline shift. Electronically Signed by Chandler Galindo MD 03/25/2018 04:24 P
== END ==
LOC: M RAD 13:39
PROVIDERS: ATTEND Nurse Practitioner Family
DX: R51 Headache (principal); C34.90 Malignant neoplasm of unspecified part of unspecified bronchus or lung
CPT/HCPCS: 70553; A9576

== ENCOUNTER → 2018-03-29 | Outpatient (CLI) | payer OTHER ==
[~2018-03-29] MED LIST changes: -PROHANCE 279.3MG/ML 15ML VIAL (A9576) As Ordered ONE
--- NOTE | 2018-03-29 18:44 | MEDONC ---
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 Here for results of brain MRI showing new intracranial metastases. 2. Post thoracotomy pain improved on Gabapentin right thorax extending from shoulder to right flank. 3. Treatment induced rash, likely secondary to ramucirumab involving arms buttocks, chest October 2017 resolved ramucirumab resumed without recurrent rash. CURRENT THERAPY: Docetaxel/ramucirumab every 21 days. Most recent treatment held 03/23/2018 which would have been day one cycle eight due to complaint of headache. INTERVAL HISTORY: Unfortunately a brain MRI shows multiple small intracranial metastases bilaterally and in several different sites. Cuco refused to return to office yesterday to discuss results but was informed over the phone talking with Marlni Weston and started on dexamethasone 4 mg three times a day. The MRI on 03/25/2018 shows multiple enhancing nodular lesions in cerebral hemispheres and cerebellum ranging from 0.1 to 1.7 cm. No midline shift. He is very upset, tearful complains of headache involving his right occiput area. He points to the area and says there is a mass there. Palpating this there is no palpable mass and no tenderness to touch. I explained the metastases or intracranial in the soft tissue of the brain and the reason for the dexamethasone as to reduce any swelling. It is possible his headache is related to swelling subtle related to the metastases. Cuco was tearful, upset had many questions difficult to console during today's visit. I discussed palliative radiation. He has an appointment tomorrow morning for a PET scan to restage. I spoke with Dr. Rodriguez who can see him later this morning. I explained the palliative radiation can control the intracranial disease and that chemotherapy targets the systemic disease outside of the brain. Because of Cuco's complaint of neck pain and then and added on complaint of right arm numbness. I am ordering cervical spine and neck CTs with contrast today. He is agreeable to these. He did not want to do another MRI right away. 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 ECOG performance status zero. PLAN: 1. Immediate radiation oncology consult today for palliative radiation. 2. Neck soft tissue and cervical spine CTs with contrast to evaluate possibly radicular pain Cuco's complaining of. He also has a intermediate accountant post thoracotomy pain syndrome involving his right upper chest. It is difficult to tease these out. We will make sure there is no drop mets for example involving the neck. 3. PET CT in the morning. 4. I will see Cuco back next week. We will review PET results. He will be quite busy with radiation oncology this week and of course I will call him immediately for any management changing results on PET. TIME STATEMENT: 40 MINUTES was spent face to face with the patient more than 50% involved in counseling regarding emergence of , discussing prognosis and treatment, brain metastases, including contiuing steroids, whole brain irradiation, purpose of restaging PET, and answering all of the patient's questions. Electronically Signed by Lluvia Perez MD 03/30/2018 06:10 P DD: Lluvia Perez MD 03/29/2018 05:43 P DT: erlinda 03/29/2018 06:00 P CC: MD Oni Puri MD
== END ==
LOC: M ONCR 09:42
PROVIDERS: ATTEND Radiology Radiation Oncology
DX: C34.91 Malignant neoplasm of unspecified part of right bronchus or lung (principal); C79.31 Secondary malignant neoplasm of brain

== ENCOUNTER → 2018-03-30 | Outpatient (CLI) | payer OTHER ==
--- NOTE | 2018-03-30 18:45 | REP ---
PET/CT: History: Restaging adenocarcinoma of the lung. Comparisons: Comparison PET-CT study July 22, 2016. Comparison CT study of the chest March 15, 2018. TECHNIQUE: 1 hour 42 minutes following the intravenous injection of a 8.3 mCi dose of F-18 FDG, three-dimensional PET scintigraphy is acquired from the skull base to the proximal thighs. Triplanar noncontrast CT scanning is acquired through the same anatomic range for attenuation correction, and image registration with scan parameters optimized to minimize radiation exposure to the patient. PET scintigraphy and CT datasets were fused and displayed on a workstation with multiplanar and projection display capability. PET/CT Findings: Spiculated nodule in the right middle lobe is hypermetabolic. Maximum standard uptake value is 7.1 within this. There is a rounded hypermetabolic focus in the right hilus with maximum standard uptake value 11.3 consistent with right hilar lymphadenopathy. There is a precarinal hypermetabolic node with maximum standard uptake value 7.4. There is a pleural focus of thickening and mildly hypermetabolic uptake just posterior to the major fissure in the right lower lobe. Maximum standard uptake value 2.2. There is a small right pleural effusion. No hypermetabolic uptake is seen within the right pleural effusion. No abnormal adrenal hypermetabolic uptake is seen. No other abnormal intrathoracic hypermetabolic uptake is noted. Head and neck soft tissues are unremarkable. There is multifocal normal variant skeletal muscle uptake. No abnormal uptake is seen in the liver. No abnormal abdominal or pelvic hypermetabolic uptake is seen. Impression: Several hypermetabolic foci in the chest involving the right middle lobe spiculated density, a right pleural soft tissue density, a right hilar and a precarinal lymph node. These are all felt to be suspicious. Electronically Signed by Asher Rosario MD 03/30/2018 08:47 P
== END ==
LOC: M PLARAD 08:05
PROVIDERS: ATTEND Nurse Practitioner Family
DX: C34.90 Malignant neoplasm of unspecified part of unspecified bronchus or lung (principal)
CPT/HCPCS: 78815; A9552

== ENCOUNTER → 2018-04-11 | Outpatient (RCR) | payer OTHER ==
--- NOTE | 2018-03-31 10:34 | RADONC ---
RADIATION ONCOLOGY CONSULTATION: DATE: 03/29/2018 CHART NUMBER: [id number]. DIAGNOSIS: Right lung cancer. STAGE: III B, T4N1M0, now metastatic. ECOG PERFORMANCE STATUS: 0 Mr. 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 HISTORY OF PRESENT ILLNESS: The patient's history dates back to mid 2015 when he developed some back pain and was found to have a right middle lobe mass. A CT scan was done at that time and showed a 2.9 cm right middle lobe mass with right hilar adenopathy. In January of that year, there was also noted to be 9 mm subcarinal node. Pulmonary function tests were undertaken and further scans were undertaken as well which showed no evidence of metastatic disease. On 04/01/2018, the patient underwent bronchial brushings with Dr. Shaffer which were nondiagnostic. On 04/03/2016, the patient underwent a CT-guided right middle lobe biopsy and pathology confirmed a moderately differentiated adenocarcinoma. The patient has a long psychiatric history and was followed. He was found in May to have multiple small right lung lower lobe nodules that increased in size. A PET/CT scan was done on 07/22/2016 with hypermetabolic uptake involving the right middle lobe and the right hilar area and several right lower lobe nodules. On 07/27/2016, the patient underwent right lower lobe wedge resection with Dr. Anne, which was positive for metastatic adenocarcinoma consistent with his primary. He was deemed unresectable and has been seen by medical oncology since. The patient has been receiving palliative chemo/immunotherapy. The patient reports that for the past 3 months he has had severe posterior headaches. An MRI was done on 03/25/2018 that showed multiple enhancing metastatic lesions in the cerebral hemispheres and the cerebellum. Decadron was initiated and he is now presenting for consideration of palliative radiation therapy. PAST MEDICAL HISTORY: The patient's past medical history is positive for arthritis. Anxiety and paranoid schizophrenia some seizures as well as back pain. ALLERGIES: The patient has NO KNOWN DRUG ALLERGIES. SOCIAL HISTORY: The patient has smoked less than half a pack of cigarettes per day for 40 years. He does not abuse alcohol. FAMILY HISTORY: The patient's family history is positive for a father with lymphoma, a sister with ovarian cancer and a maternal aunt with breast cancer. REVIEW OF SYSTEMS: The patient's review of systems is positive for hearing loss, back pain swollen glands, fevers and chills, headaches, chest pain, visual disturbances, weight loss, anorexia, anxiety, depression, difficulty swallowing, difficulty chewing, dizziness, fainting and physical limitations. Basically he checked everything on our review of systems accept urinary or bowel difficulties. PHYSICAL EXAMINATION: The patient is a well-developed, well-nourished male in no acute distress. HEENT exam is normocephalic, atraumatic. Extraocular movements are intact. There is no palpable cervical, supraclavicular, infraclavicular, axillary, or inguinal lymphadenopathy present. Lungs are clear to auscultation and percussion. Heart has a regular rate and rhythm. Abdomen is benign with no hepatosplenomegaly, masses, or tenderness. Skeletal examination reveals no tenderness to pressure or percussion of the bony skeleton. Extremities reveal no clubbing, cyanosis, or edema. Neurologic exam is grossly intact, as is the remainder of the physical examination. ASSESSMENT: Clearly Mr. Walker is a candidate for palliative radiation therapy and I have so informed him. I have discussed with the patient in detail the potential benefits as well as possible acute and chronic sequelae of external beam radiation therapy. We discussed logistics of treatment planning, simulation subsequent fractionated daily radiation treatments. I have scheduled the patient for the next available simulation slot and radiation treatments will begin subsequently. Thank you for allowing us to participate in the care of this unfortunate gentleman. If I could be of any further assistance or provide you with any information, please feel free to contact me anytime. As always warm regards, cc: MD Garo Villalobos, DO [facility]
--- NOTE | 2018-03-31 11:02 | RADONC ---
RADIATION ONCOLOGY SIMULATION NOTE DATE: 03/30/2018 CHART #: [id number] Mr. Walker was taken to the CT scan and for CT simulation of his whole brain field. CT was accomplished without difficulty or discomfort. Radiation treatment planning is underway and radiation treatments will begin subsequently. Because of his psychiatric background and claustrophobia, we did not use a mesh mask. Instead, we taped the patient's forehead and chin for immobilization. I was physically present throughout the course of CT simulation.
--- NOTE | 2018-04-13 14:15 | RADONC ---
RADIATION ONCOLOGY PROGRESS NOTE DATE: 04/11/2018 CHART NUMBER: [id number] PROGRESS NOTE: Mr. Walker is presently a dose of 1200 cGy to his whole brain and is tolerating treatments quite well at this point with no complaints related to his radiation therapy. He is having no headaches or other problems. REVIEW OF SYSTEMS: The patient's review of systems is noncontributory. Denies nausea, vomiting, fevers, chills, night sweats, diplopia, headaches, anxiety or depression, anorexia, weight loss, visual disturbances, chest pain, urinary or bowel difficulties, bone pain, or neurological problems. PHYSICAL EXAMINATION: The patient's skin is in excellent condition with no evidence of moist or dry desquamation. The remainder of his physical exam remains unchanged. Mr. Walker is tolerating treatments quite well and radiation will continue as scheduled.
== END ==
LOC: M ONCR 03-30 10:30
PROVIDERS: ATTEND Radiology Radiation Oncology
DX: C79.31 Secondary malignant neoplasm of brain (principal); C34.2 Malignant neoplasm of middle lobe, bronchus or lung

== ENCOUNTER 2018-04-22 09:56 | Outpatient (RCR) | payer OTHER ==
--- NOTE | 2018-04-23 11:43 | RADONC ---
RADIATION ONCOLOGY TREATMENT SUMMARY DATE: 04/22/2018 CHART NUMBER: [id number] DIAGNOSIS: Right lung cancer. STAGE: III B, T4N1M0, now metastatic. ECOG PERFORMANCE STATUS: Zero. FOLLOWUP NOTE: Mr. Walker is a very pleasant, 52-year-old white male with the diagnosis of metastatic adenocarcinoma of the right middle lobe metastasize to the brain who presented to us for consideration of palliative radiation therapy for his brain metastases. We treated the patient to his brain for a total dose of 3000 cGy delivered in 10 fractions of 300 cGy each over 16 elapsed days from 04/06/2018 through 04/22/2018. The patient's brain was treated on the linear accelerator utilizing a 6 MV photon beam via parallel opposed lateral reese. Mr. Walker tolerated his treatments quite well and was able to complete therapy as prescribed without interruption. I have scheduled the patient to see me again in 1 month for further followup. He has also been given a Decadron taper schedule and instructed to contact me if I could be of any assistance in the meantime. Thank you once again for allowing me to participate in the care of this truly enjoyable patient. If I could be of any further assistance, please feel free to contact me anytime. As always, warm regards. cc: MD Garo Villalobos, DO [facility]
== END 2018-05-12 ==
LOC: M ONCR 09:56
PROVIDERS: ATTEND Radiology Radiation Oncology
DX: C79.31 Secondary malignant neoplasm of brain (principal); C34.2 Malignant neoplasm of middle lobe, bronchus or lung

== ENCOUNTER → 2018-05-25 | Outpatient (CLI) | payer OTHER ==
[~2018-05-25] MED LIST changes: +IBUP-1022 PO; +MELO7.5T7
--- NOTE | 2018-05-28 09:58 | RADONC ---
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 STAGE: IV ECOG PERFORMANCE STATUS:0 FOLLOW-UP NOTE: Mr. Walker, with a diagnosis of recurrent adenocarcinoma of the lung with metastasis to the brain, completed whole brain radiotherapy for palliation approximately 1 month ago. He returns today for follow-up visit with no specific complaints. He has completely tapered off of his dexamethasone. REVIEW OF SYSTEMS: He denies any nausea, vomiting, significant coughing, sputum production or hemoptysis. His energy level is diminished slightly, but he is able to still maintain day-to-day activities without any significant alteration of his lifestyle. He also denies any headache, diplopia, anxiety, depression, significant weight loss, visual disturbances or bone pain. EXAMINATION FINDINGS: The skin within the irradiated volume shows epilation with no evidence of desquamation. Lymphatics: No palpable peripheral lymphadenopathy is appreciated. Lungs: Reveal some inspiratory rhonchi. Heart: Regular rate without murmurs. The patient still has a subcutaneous infusion port. Abdomen: Negative. Neurologic: Examination appears to be grossly physiologic and nonfocal. IMPRESSION: No evidence of disease recurrence or significant side effects from the radiotherapy. PLAN: We would like to see him again in approximately 6 months or p.r.n. He has ongoing chemotherapy. cc: MD Garo Rivera, [facility]
== END ==
LOC: M ONCR 09:30
PROVIDERS: ATTEND Radiology Radiation Oncology
DX: C79.31 Secondary malignant neoplasm of brain (principal); C34.2 Malignant neoplasm of middle lobe, bronchus or lung

== ENCOUNTER 2018-05-27 10:25 | Emergency (ER) | payer OTHER ==
[~2018-05-27] VITALS: Ht 182.9 cm; Wt 78.2 kg
[~2018-05-27 10:25] MED LIST changes: -IBUP-1022 PO; -MELO7.5T7
[2018-05-27] MEDS ORDERED: MELO7.5T7 (10:38)
[2018-05-27 10:53] LABS: BASO # 0.1 10^3/uL (0.0-0.2); BASO % 0.9 % (0.0-1.0); EOS # 0.1 10^3/uL (0.0-0.50); EOS % 2.2 % (0.0-3.0); HEMATOCRIT 41.8 % (42.0-52.0); HEMOGLOBIN 15.2 g/dl (13.5-17.5); LYMPH # 1.1 10^3/uL (1.5-4.5); LYMPH % 19.5 % (24.0-44.0); MEAN CORPUSCULAR HEMOGLOBIN 36.5 pg (27.0-33.0); MEAN CORPUSCULAR HGB CONC 36.4 g/dl (32.0-36.5); MEAN CORPUSCULAR VOLUME 100.2 fl (80.0-96.0); MONO # 0.7 10^3/uL (0.0-0.8); MONO % 12.1 % (0.0-5.0); NEUTROPHILS # 3.8 10^3/uL (1.8-7.7); PLATELET COUNT, AUTOMATED 101 10^3/uL (150-450); RED BLOOD COUNT 4.17 10^6/uL (4.30-6.10); WHITE BLOOD COUNT 5.9 10^3/uL (4.0-10.0)
[2018-05-27 11:09] LABS: INR 0.86; PARTIAL THROMBOPLASTIN TIME 28.2 SECONDS (25.4-37.6); PROTHROMBIN TIME 11.8 SECONDS (12.1-14.4)
[2018-05-27 11:28] LABS: ALBUMIN 3.8 GM/DL (3.2-5.2); ALT/SGPT 84 U/L (12-78); BILIRUBIN,DIRECT 0.2 MG/DL (0.0-0.2); BILIRUBIN,TOTAL 0.5 MG/DL (0.2-1.0); BLOOD UREA NITROGEN 2 MG/DL (7-18); CALCIUM LEVEL 8.6 MG/DL (8.5-10.1); CARBON DIOXIDE LEVEL 29 MEQ/L (21-32); CHLORIDE LEVEL 99 MEQ/L (98-107); CPK CREATINE PHOSPHOKINASE 81 U/L (39-308); CREATININE FOR GFR 0.59 MG/DL (0.70-1.30); FREE T4 0.95 NG/DL (0.76-1.46); GLOMERULAR FILTRATION RATE > 60.0 (>56); GLUCOSE, FASTING 87 MG/DL (70-100); LIPASE 165 U/L (73-393); MB/CK RELATIVE INDEX 1.48 (< OR =4); PHENYTOIN (DILANTIN) 10.7 UG/ML (10.0-20.0); SODIUM LEVEL 139 MEQ/L (136-145); TOTAL PROTEIN 6.9 GM/DL (6.4-8.2); TROPONIN I < 0.02 NG/ML (< 0.10); VALPROIC ACID (DEPAKOTE) 97.3 UG/ML (50.0-100.0)
[2018-05-27] MEDS ORDERED: IBUPROFEN 800 MG TAB PO ONE (12:15)
[2018-05-27] MEDS ORDERED: ISOVUE-370 76% 100ML VIAL (Q9967) As Ordered ONE (12:27)
--- NOTE | 2018-05-27 13:31 | REP ---
CT of the chest with IV contrast, CT pulmonary artery angiography protocol: Comparison is 03/15/2018. The patient is a history of a right lung carcinoma. There is a lobulated spiculated mass in the right middle lobe measuring 2.7 cm. x 2.7 cm. On the previous study this measured 1.6 x 2.6 cm. There is a new nodule in the far lateral posterior right middle lobe adjacent to the pleura measuring 8 mm. Just posterior to this nodule. There is a focal pleural thickening, unchanged. There are multiple pleural-based lung nodules posteriorly in the superior segment right lower lobe. These are unchanged. There is right hilar adenopathy measuring up to 2.1 centimeter short axis. This measured 1.8 cm previously. There is subcarinal adenopathy measuring up to 1.4 cm short axis. This measured 1.1 cm previously. There is a small right pleural effusion, slightly decreased in size. There are no emboli in the pulmonary trunk or central pulmonary arteries. There are no emboli in the pulmonary lobe or segment branches. Impression: There are no pulmonary emboli. There is a right little middle lobe mass has increased in size. There is right hilar and subcarinal adenopathy that has increased in size. There is a new nodule far posterolaterally in the right middle lobe adjacent to the pleura. There is a small right pleural effusion has decreased in size. Electronically Signed by Manuel Jesus MD 05/27/2018 01:22 P
[2018-05-27] MEDS ORDERED: IBUP-1022 PO (14:10)
[2018-05-27 14:19] VITALS: BP 154/89
--- NOTE | 2018-05-28 19:22 | ECGEPIP ---
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
--- NOTE | 2018-06-06 20:12 | ED PDOC ---
Post-Departure Follow-Up dr lopez faxed formal report of ct chest angio for fu Joanne Andrade MD Jun 06, 2018 20:12
== END 2018-05-27 14:22 | disposition home or self-care (01) ==
LOC: M ED 10:25
DX: R07.1 Chest pain on breathing (principal); R00.0 Tachycardia, unspecified; R05 Cough; C34.91 Malignant neoplasm of unspecified part of right bronchus or lung; Z87.891 Personal history of nicotine dependence; Z79.899 Other long term (current) drug therapy
CPT/HCPCS: 71275; 80048; 80076; 80164; 80185; 82550; 82553; 83690; 84439; 84443; 85025; 85610; 85730; 93005; 93041; 94760; 99285; Q9967

== ENCOUNTER → 2018-05-27 | Outpatient (CLI) | payer OTHER ==
--- NOTE | 2018-05-27 10:59 | REP ---
Chest two views HISTORY: Lung carcinoma Comparison: 07/01/2017 Patchy density is present in the right lower lobe consistent with an infiltrate that is decreased compared to the previous study. The left lung is clear. There is blunting of the left costophrenic angle due to pleural thickening. The heart is normal in size. The pulmonary vasculature is normal in appearance. The bony structure is intact. An Fnilzr-Y-Hcrt catheter is present. IMPRESSION: Right lower lobe infiltrate decreased compared to the previous study. Electronically Signed by Chandler Galindo MD 05/27/2018 10:50 A
[2018-05-27 11:27] LABS: HEMATOCRIT 41.6 % (42.0-52.0); HEMOGLOBIN 14.8 g/dl (13.5-17.5); MEAN CORPUSCULAR HEMOGLOBIN 36.5 pg (27.0-33.0); MEAN CORPUSCULAR HGB CONC 35.6 g/dl (32.0-36.5); MEAN CORPUSCULAR VOLUME 102.7 fl (80.0-96.0); PLATELET COUNT, AUTOMATED 103 10^3/uL (150-450); RED BLOOD COUNT 4.05 10^6/uL (4.30-6.10); WHITE BLOOD COUNT 5.6 10^3/uL (4.0-10.0)
[2018-05-27 11:36] LABS: ALBUMIN 3.6 GM/DL (3.2-5.2); ALT/SGPT 80 U/L (12-78); BILIRUBIN,TOTAL 0.5 MG/DL (0.2-1.0); BLOOD UREA NITROGEN 3 MG/DL (7-18); CALCIUM LEVEL 8.4 MG/DL (8.5-10.1); CARBON DIOXIDE LEVEL 31 MEQ/L (21-32); CHLORIDE LEVEL 99 MEQ/L (98-107); CREATININE FOR GFR 0.62 MG/DL (0.70-1.30); GLOMERULAR FILTRATION RATE > 60.0 (>56); GLUCOSE, FASTING 78 MG/DL (70-100); POTASSIUM SERUM 4.3 MEQ/L (3.5-5.1); SODIUM LEVEL 140 MEQ/L (136-145); TOTAL PROTEIN 6.6 GM/DL (6.4-8.2)
== END ==
LOC: M LAB 09:59
PROVIDERS: ATTEND Internal Medicine Medical Oncology
DX: C34.90 Malignant neoplasm of unspecified part of unspecified bronchus or lung (principal); Z97.8 Presence of other specified devices

== ENCOUNTER → 2018-06-02 | Outpatient (REF) | payer OTHER ==
[~2018-06-02] MED LIST changes: +IBUP-1022 PO; +MELO7.5T7
[2018-06-02 09:56] LABS: FREE T4 0.85 NG/DL (0.76-1.46); PHENYTOIN (DILANTIN) 6.7 UG/ML (10.0-20.0); THYROID STIMULATING HORMONE 1.18 uIU/ML (0.358-3.740); VALPROIC ACID (DEPAKOTE) 36.7 UG/ML (50.0-100.0)
[2018-06-02 10:54] LABS: PTH INTACT 18.5 PG/ML (18.5-88.0); TOTAL 25(OH) VITAMIN D 6.4 NG/ML (30.0-100.0)
== END ==
LOC: M SFHCPLAZ 07:46
PROVIDERS: ATTEND Physician Assistant Medical
DX: R56.9 Unspecified convulsions (principal); G47.00 Insomnia, unspecified; E55.9 Vitamin D deficiency, unspecified

== ENCOUNTER 2018-08-15 09:04 | Emergency (ER) | payer OTHER ==
[~2018-08-15] VITALS: Ht 182.9 cm; Wt 77.3 kg
[2018-08-15 09:04] VITALS: BP 111/75
[~2018-08-15 09:04] MED LIST changes: -/QUET10TA; +CORTOTSO AD; -NEOM1SOL17 AD; +SERO1TAB
[2018-08-15] MEDS ORDERED: PHEN100C (09:19)
[2018-08-15] MEDS ORDERED: METO1TAB32 (09:19)
[2018-08-15] MEDS ORDERED: CIPRODEX OTIC (09:45)
[2018-08-15] MEDS ORDERED: AUGM875T28 PO (09:45)
== END 2018-08-15 09:52 | disposition home or self-care (01) ==
LOC: M ED 09:04
DX: H60.93 Unspecified otitis externa, bilateral (principal); F17.200 Nicotine dependence, unspecified, uncomplicated; F03.90 Unspecified dementia, unspecified severity, without behavioral disturbance, psychotic disturbance, mood disturbance, and anxiety; F10.97 Alcohol use, unspecified with alcohol-induced persisting dementia; R56.9 Unspecified convulsions; C34.91 Malignant neoplasm of unspecified part of right bronchus or lung; K21.9 Gastro-esophageal reflux disease without esophagitis; F41.9 Anxiety disorder, unspecified; F31.9 Bipolar disorder, unspecified; F20.9 Schizophrenia, unspecified; Z79.899 Other long term (current) drug therapy; Z79.1 Long term (current) use of non-steroidal anti-inflammatories (NSAID)

== ENCOUNTER → 2018-09-15 | Outpatient (REF) | payer OTHER ==
[~2018-09-15] MED LIST changes: +AUGM875T28 PO; +CIPRODEX OTIC; +METO1TAB32; +PHEN100C
== END ==
LOC: M LAB REF 12:13
PROVIDERS: ATTEND Physician Assistant Medical
DX: H92.13 Otorrhea, bilateral (principal)

== ENCOUNTER → 2018-09-28 | Outpatient (REF) | payer OTHER | LOC: M LAB REF 13:29 | PROVIDERS: ATTEND Physician Assistant Medical | DX: H92.13 Otorrhea, bilateral (principal) ==

== ENCOUNTER 2018-12-09 07:43 | Outpatient (RCR) | payer OTHER ==
[2018-01-11 10:17] LABS: HEMATOCRIT 40.4 % (37.0-51.0); HEMOGLOBIN 13.2 g/dl (12.0-18.0); LYMPH % 27.2 % (10.0-58.5); MEAN CORPUSCULAR HEMOGLOBIN 36.6 pg (26.0-32.0); MEAN CORPUSCULAR HGB CONC 32.7 g/dl (31.0-36.0); MEAN CORPUSCULAR VOLUME 111.9 fl (80.0-97.0); NEUTROPHILS # 3.7 10^3/uL (2.0-7.8); NEUTROPHILS % 60.8 % (37.0-92.0); RED BLOOD COUNT 3.61 10^6/uL (4.2-6.3); WHITE BLOOD COUNT 6.1 10^3/uL (4.1-10.9)
[2018-01-11 10:30] LABS: BLOOD UREA NITROGEN 6 MG/DL (6-20); CALCIUM LEVEL 8.6 MG/DL (8.5-10.2); CARBON DIOXIDE LEVEL 25.5 MEQ/L (23-31); CHLORIDE LEVEL 101 MMOL/L (98-107); CREATININE FOR GFR 0.69 MG/DL (0.90-1.30); GLOMERULAR FILTRATION RATE > 60.0 (>56); GLUCOSE, FASTING 87 MG/DL (70-105); POTASSIUM SERUM 4.2 MMOL/L (3.5-5.1); SODIUM LEVEL 136.3 MMOL/L (136-145); TOTAL PROTEIN 6.2 GM/DL (6.4-8.3)
[2018-01-11 10:48] VITALS: BP 128/78
[2018-01-25 08:20] VITALS: BP 123/77
[2018-01-25 08:38] LABS: HEMATOCRIT 41.7 % (37.0-51.0); HEMOGLOBIN 13.7 g/dl (12.0-18.0); LYMPH % 26.4 % (10.0-58.5); MEAN CORPUSCULAR HEMOGLOBIN 36.3 pg (26.0-32.0); MEAN CORPUSCULAR HGB CONC 32.9 g/dl (31.0-36.0); MEAN CORPUSCULAR VOLUME 110.6 fl (80.0-97.0); NEUTROPHILS # 2.9 10^3/uL (2.0-7.8); NEUTROPHILS % 63.5 % (37.0-92.0); RED BLOOD COUNT 3.77 10^6/uL (4.2-6.3); WHITE BLOOD COUNT 4.6 10^3/uL (4.1-10.9)
[2018-01-25 08:45] LABS: BLOOD UREA NITROGEN 6 MG/DL (6-20); CALCIUM LEVEL 8.7 MG/DL (8.5-10.2); CARBON DIOXIDE LEVEL 25.7 MEQ/L (23-31); CHLORIDE LEVEL 99 MMOL/L (98-107); CREATININE FOR GFR 0.68 MG/DL (0.90-1.30); GLUCOSE, FASTING 93 MG/DL (70-105); SODIUM LEVEL 133.4 MMOL/L (136-145); TOTAL PROTEIN 6.4 GM/DL (6.4-8.3)
[2018-01-25 08:46] LABS: GLOMERULAR FILTRATION RATE > 60.0 (>56)
--- NOTE | 2018-01-26 08:11 | MEDONC ---
MEDICAL ONCOLOGY FOLLOWUP VISIT DATE OF SERVICE: 01/25/2018 Cuco as he likes to be called is seen today by HERNAN Ttoh with Dr. Lluvia Perez the supervising physician. DIAGNOSIS: 1. 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 2. Post thoracotomy right thoracic pain, chronic, improved on gabapentin. (As previously documented, the patient has sought opioids from multiple providers in the past. We have discontinued providing these). 3. Rash involving arms, buttocks and chest October 2017, question if treatment related, currently resolved. 4. Otitis media of the left ear with culture revealing Staphylococcus aureus. Cuco is under the care of ENT and is scheduled to see Dr. Valenzuela later this week. He has completed doxycycline and been discontinued on his first otic antibiotic solution. Recently started on a second antibiotic solution on 01/20/2018 with reported improvement in the ear drainage. At present, Cuco offers no other new complaints. He feels that the drainage from his left year is approximately 50% better since initiating a second antibiotic otic solution. He is scheduled to see Dr. Valenzuela later this week. When seen most recently by Dr. Perez, Cuco reported a progressive nonproductive cough. Cuco indicates today his cough is significantly improved, almost resolved. We did obtain a current CT of the chest that was done on 01/18/2018 and fortunately shows stable changes involving the right hemithorax when compared to prior examination, including a slight decrease in the right pleural effusion. No new acute process is appreciated. Stable mediastinal and right hilar adenopathy with lymph nodes measuring up to 19 mm. These findings were reviewed with Cuco to his understanding and to his pleasure. REVIEW OF SYSTEMS: 12 system review completed and is positive for persistent but resolving drainage from the left ear, resolving cough. Otherwise, a completely negative review. PHYSICAL EXAMINATION: Weight is 76.2 kg, temperature 97.9, pulse 96, respirations 20, BP 123/77, O2 sat 96% at rest on room air. GENERAL EXAM: Reveals a pleasant, youthful, middle-aged man who is comfortable and in no acute distress. HEENT: Positive for some scant persistent drainage (clear) noted in the ear canal, question drainage versus otic solution. No palpable cervical adenopathy. No obvious erythema or swelling of the left external ear CARDIOVASCULAR: PMI 5th left intercostal space, midline. S1, S2 normal. No S3, S4 or murmurs. Regular rhythm. Femoral, dorsalis pedis pulses 2+ bilaterally. LYMPHATICS: No palpable lymphadenopathy. ABDOMEN: Soft, nontender. Bowel sounds normal. No tenderness, guarding, or rebound. No palpable masses or hepatosplenomegaly. MUSCULOSKELETAL: No focal skeletal tenderness to percussion. No joint swelling, warmth, tenderness, or erythema. SKIN: No rash, ecchymosis, or petechiae. Normal turgor. EXTREMITIES: No edema, clubbing, cyanosis. No thigh or calf tenderness. Normal range of motion. LABORATORY DATA WBC 4.6, ANC 2.9, RBC 3.77, H and H 13.7 and 41.2, platelets 139. Chemistries are pending as of this dictation. IMPRESSION: Cuco presents today for possible day 1 cycle seven of chemotherapy for unresectable multilobar right lung, PD-L1 low adenocarcinoma, on second line palliative treatment with docetaxel and ramucirumab. He continues to have drainage from the left ear and was recently started on a second antibiotic otic solution. This is improving but the drainage has not completely resolved. Cuco's most recent restaging CT scan of the chest is stable. His cough that was mentioned at the last visit has almost completely resolved. We will hold Cuco's treatment again today. He will return in 1 week for reevaluation, blood work and possible day 1 cycle seven of chemo immunotherapy. Reviewed by Marlin Weston NP 01/27/2018 07:52 A Electronically Signed by Lluvia Perez MD 01/27/2018 06:32 P DD: Marlin Weston NP 01/25/2018 09:12 A DT: eron 01/26/2018 07:45 A CC:
[2018-02-15 08:35] VITALS: BP 121/71
[2018-02-15 09:01] LABS: HEMATOCRIT 40.3 % (37.0-51.0); HEMOGLOBIN 13.5 g/dl (12.0-18.0); LYMPH % 45.1 % (10.0-58.5); MEAN CORPUSCULAR HEMOGLOBIN 36.9 pg (26.0-32.0); MEAN CORPUSCULAR HGB CONC 33.5 g/dl (31.0-36.0); NEUTROPHILS # 1.4 10^3/uL (2.0-7.8); NEUTROPHILS % 41.4 % (37.0-92.0); RED BLOOD COUNT 3.66 10^6/uL (4.2-6.3); WHITE BLOOD COUNT 3.3 10^3/uL (4.1-10.9)
[2018-02-15] MEDS: SODIUM CHLORIDE 0.9% INJ 10 ML SYR IV PRN (09:30)
[2018-02-15 09:36] LABS: ALBUMIN 4.2 GM/DL (3.5-5.2); BLOOD UREA NITROGEN 7 MG/DL (6-20); CALCIUM LEVEL 8.8 MG/DL (8.5-10.2); CARBON DIOXIDE LEVEL 25 MEQ/L (23-31); CHLORIDE LEVEL 100 MMOL/L (98-107); GLOMERULAR FILTRATION RATE > 60.0 (>56); GLUCOSE, FASTING 90 MG/DL (70-105); SODIUM LEVEL 134 MMOL/L (136-145); TOTAL PROTEIN 6.3 GM/DL (6.4-8.3)
[2018-02-22 07:58] VITALS: BP 147/86
[2018-02-22 08:11] LABS: HEMATOCRIT 41.3 % (37.0-51.0); HEMOGLOBIN 13.6 g/dl (12.0-18.0); LYMPH % 36.4 % (10.0-58.5); MEAN CORPUSCULAR HEMOGLOBIN 35.9 pg (26.0-32.0); MEAN CORPUSCULAR HGB CONC 32.9 g/dl (31.0-36.0); NEUTROPHILS # 2.1 10^3/uL (2.0-7.8); NEUTROPHILS % 51.9 % (37.0-92.0); RED BLOOD COUNT 3.79 10^6/uL (4.2-6.3); WHITE BLOOD COUNT 4.1 10^3/uL (4.1-10.9)
[2018-02-22 08:30] LABS: ALBUMIN 4.3 GM/DL (3.5-5.2); BLOOD UREA NITROGEN 7 MG/DL (6-20); CALCIUM LEVEL 8.8 MG/DL (8.5-10.2); CARBON DIOXIDE LEVEL 27 MEQ/L (23-31); CHLORIDE LEVEL 99 MMOL/L (98-107); CREATININE FOR GFR 0.71 MG/DL (0.90-1.30); GLOMERULAR FILTRATION RATE > 60.0 (>56); GLUCOSE, FASTING 96 MG/DL (70-105); POTASSIUM SERUM 4.2 MMOL/L (3.5-5.1); SODIUM LEVEL 134 MMOL/L (136-145); TOTAL PROTEIN 6.7 GM/DL (6.4-8.3)
[2018-02-22] MEDS: SODIUM CHLORIDE 0.9% INJ 10 ML SYR IV PRN (11:54)
--- NOTE | 2018-02-23 08:52 | MEDONC ---
MEDICAL ONCOLOGY FOLLOWUP/TREATMENT VISIT: DATE OF SERVICE: 02/22/2018 Cuco as he likes to be called is seen today by Marlin Weston with Dr. Perez the supervising physician. DIAGNOSIS: 1. 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 2. Post thoracotomy right thoracic pain, chronic, improved on gabapentin. 3. Rash involving arms, buttocks and chest October 2017, question if treatment related, resolved. 4. Otitis media of the left ear with culture revealing Staphylococcus aureus. Cuco has been under the care of ENT and has completed antibiotics with complete resolution of the infection and the associated drainage. INTERVAL HISTORY: Cuco presents today for follow-up, blood work and possible delayed day one cycle number seven of palliative Docetaxel/Ramucirumab. When he was here one week ago, his treatment was held secondary to neutropenia. On today's CBC, his neutropenia has resolved (ANC 2.1). The remainder of the CBC looks good with a white blood cell count of 4.1, H/H of 13.6/41.3 and platelets 177. REVIEW OF SYSTEMS: 12 system review completed and is negative at this time for headache, visual disturbance, dyspnea, persistent cough, diminished appetite, nausea, vomiting, rash, new lumps or bumps, diarrhea, constipation, new skeletal pain or extremity edema. PHYSICAL EXAMINATION: Weight is 78.8 kg, temperature is 97.7, pulse 70, respirations 20, BP 147/86, O2 sat 98% at rest on room air. General exam reveals a pleasant, tall, middle-aged man who is comfortable and in no acute distress. HEENT: No scleral icterus. Oral pharynx, oral mucous membranes normal. Conjunctivae normal. No thyroid enlargement or nodule. No jugular venous distention. Neck supple. Carotid upstrokes 1+, no bruits. Fundi normal bilaterally. RESPIRATORY: Lungs clear bilaterally to auscultation and percussion. No rales, rhonchi, or wheezing. CARDIOVASCULAR: PMI 5th left intercostal space, midline. S1, S2 normal. No S3, S4 or murmurs. Regular rhythm. Femoral, dorsalis pedis pulses 2+ bilaterally. LYMPHATICS: No palpable lymphadenopathy. ABDOMEN: Soft, nontender. Bowel sounds normal. No tenderness, guarding, or rebound. No palpable masses or hepatosplenomegaly. MUSCULOSKELETAL: No focal skeletal tenderness to percussion. No joint swelling, warmth, tenderness, or erythema. SKIN: No rash, ecchymosis, or petechiae. Normal turgor. EXTREMITIES: No edema, clubbing, cyanosis. No thigh or calf tenderness. Normal range of motion. LABORATORY DATA: As above. Chemistries are pending as of this dictation. IMPRESSION: Cuco is currently doing well. Review of systems are negative today. ECOG performance status is 0. His previous left otitis media has completely resolved. Today's CBC is within an acceptable range to proceed with delayed day one cycle seven of chemotherapy for unresectable multilobar right lung, PD-L1 low adenocarcinoma. PLAN: 1. Proceed with treatment today. 2. Return in 3 weeks for an office visit, blood work including a CBC, stat CMP and scheduled day one cycle eight of treatment. Cuco knows to contact us in the interim with any new symptoms, questions or problems. Reviewed by Marlin Weston NP 02/24/2018 07:34 A Electronically Signed by Lluvia Perez MD 02/24/2018 06:22 P DD: Marlin Weston NP 02/22/2018 08:32 A DT: scott 02/23/2018 08:03 A CC:
--- NOTE | 2018-03-10 07:16 | MEDONC ---
MEDICAL ONCOLOGY FOLLOWUP/TREATMENT VISIT. DATE OF SERVICE: 01/11/2018 DIAGNOSIS: 1. 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 2. Post thoracotomy pain, chronic improved on gabapentin (patient has sought opioids from multiple providers; we decline providing these). 3. Treatment induced rash, likely secondary to ramucirumab involving arms, buttocks, chest October 2017 resolved and ramucirumab resumed without recurrent rash. CURRENT THERAPY: Docetaxel/ramucirumab q. 21 days, today is scheduled day #1 cycle 7. INTERVAL HISTORY: Cuco's treatment was held a week ago for left ear infection with drainage and he has ENT followup. Today, he complains of persistent cough, progressive. It has been many months since restaging. We discussed a course of antibiotics with Levaquin as well as restaging. He is happy to take a break from treatment currently. He otherwise has no new complaints. REVIEW OF SYSTEMS: The patient denies hemoptysis, shaking, chills, fever, nausea, vomiting, rash, shortness of breath. He does have productive cough with yellow-green sputum, in general nasal congestion and feeling poorly. Remainder of 12-system review negative. PHYSICAL EXAMINATION: Weight 76 kg. Temperature 97.2, blood pressure 128/78, heart rate 85, respiratory 18, oxygen saturation 97%. Patient is a youthful middle aged man in no distress. Respiratory: A few course, nonreproducible breath sounds, scattered right greater than left. No basilar rales. No wheezes. Cardiac: S1, S2 regular rate and rhythm. No murmurs. No gallops. Abdomen: Nondistended, nontender. No hepatosplenomegaly. Extremities: No edema. No rash. Lymph nodes: No submandibular, cervical, supraclavicular, or axillary adenopathy bilaterally. LABORATORY DATA: WBC 6, hemoglobin 13, hematocrit 40, platelets 146. Normal electrolytes, renal function, and liver function. CEA 0.6. IMPRESSION: Metastatic PD-L1 low adenocarcinoma of the right lung on second-line palliative treatment with combination docetaxel/ramucirumab after progression following chemotherapy/immunotherapy, so far has tolerated treatment well but currently with respiratory infection and an apparent middle ear infection. PLAN: 1. Hold cycle 7. 2. Levaquin 750 p.o. daily for [address] chest, abdomen pelvis. 4. Return in 1 week for possible cycle 7 depending on results of restaging and infectious signs and symptoms. Electronically Signed by Lluvia Perez MD 03/10/2018 05:41 P DD: Lluvia Perez MD 03/07/2018 08:08 A DT: eron 03/07/2018 09:47 A CC:
[2018-03-15 09:09] LABS: HEMATOCRIT 38.8 % (37.0-51.0); HEMOGLOBIN 13.2 g/dl (12.0-18.0); LYMPH % 27.9 % (10.0-58.5); MEAN CORPUSCULAR HEMOGLOBIN 37.1 pg (26.0-32.0); MEAN CORPUSCULAR VOLUME 108.9 fl (80.0-97.0); NEUTROPHILS # 4.2 10^3/uL (2.0-7.8); NEUTROPHILS % 61.2 % (37.0-92.0); RED BLOOD COUNT 3.56 10^6/uL (4.2-6.3); WHITE BLOOD COUNT 6.8 10^3/uL (4.1-10.9)
[2018-03-15 09:16] LABS: BLOOD UREA NITROGEN 8 MG/DL (6-20); CALCIUM LEVEL 8.6 MG/DL (8.5-10.2); CARBON DIOXIDE LEVEL 23 MEQ/L (23-31); CHLORIDE LEVEL 104 MMOL/L (98-107); CREATININE FOR GFR 0.61 MG/DL (0.90-1.30); GLUCOSE, FASTING 92 MG/DL (70-105); POTASSIUM SERUM 4.2 MMOL/L (3.5-5.1); SODIUM LEVEL 136 MMOL/L (136-145); TOTAL PROTEIN 6.6 GM/DL (6.4-8.3)
[2018-03-15 09:17] LABS: GLOMERULAR FILTRATION RATE > 60.0 (>56)
[2018-03-15 09:28] VITALS: BP 154/80
--- NOTE | 2018-03-16 16:17 | MEDONC ---
MEDICAL ONCOLOGY FOLLOWUP/SCHEDULED TREATMENT VISIT DATE OF SERVICE: 03/15/2018 Cuco as he likes to be called is seen today by HERNAN Toth with Dr. Lluvia Perez the supervising physician. DIAGNOSES: 1. 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 2. Post thoracotomy pain, chronic improved on gabapentin (patient has sought opioids from multiple providers; we decline providing these). 3. Treatment induced rash, likely secondary to ramucirumab involving arms, buttocks, chest October 2017 resolved and ramucirumab resumed without recurrent rash. CURRENT THERAPY: Docetaxel/ramucirumab q. 21 days, today is scheduled day 1, cycle 8. INTERVAL HISTORY: Cuco presents today for a scheduled followup prior to proceeding with treatment. He reports an approximate 10-14 day history of a sense of progressive dyspnea, tachycardia and intermittent left anterior chest wall pain. ( Of note, his [id number] is left anterior chest wall). He denies any productive cough or signs or symptoms of infection. Adamantly denies any chest pain. Otherwise, Cuco claims to be in his usual state of health. He continues off antibiotics for a more recent history of a left otitis with drainage and culture revealing staph. At present, no other new complaints are offered. Cuco specifically denies complaints of headache, visual disturbance, diminished appetite, nausea, vomiting, fevers, chills, diarrhea, constipation, extremity edema, or new skeletal pain. PHYSICAL EXAMINATION: Weight is 78.9 kg, BSA 2.00, temperature is 97.7, pulse 86, respirations 18, BP 154/80. Initial O2 sat 91% at rest on room air, upon recheck after sitting a few minutes 96% at rest on room air. GENERAL: Exam reveals a very pleasant, youthful middle-aged man, well-groomed who is comfortable and in no acute distress. HEENT: No scleral icterus. Oral pharynx, oral mucous membranes normal. Conjunctivae normal. No thyroid enlargement or nodule. No jugular venous distention. Neck supple. Carotid upstrokes 1+, no bruits. Fundi normal bilaterally. RESPIRATORY: Positive for a few coarse nonreproducible breath sounds, scattered, right greater than left. No basilar rales. No wheezes. CARDIAC: S1, S2, regular rate and rhythm. No murmurs or gallops. ABDOMEN: Soft, nontender. Bowel sounds normal. No tenderness, guarding, or rebound. No palpable masses or hepatosplenomegaly. MUSCULOSKELETAL: No focal skeletal tenderness to percussion. No joint swelling, warmth, tenderness, or erythema. SKIN: No rash, ecchymosis, or petechiae. Normal turgor. EXTREMITIES: No edema, clubbing, cyanosis. No thigh or calf tenderness. Normal range of motion. NEUROLOGICAL: No motor or sensory deficits. Cranial nerves intact, no pathological reflexes. MSRs 2+ and symmetrical. Visual reese full to confrontation. Pupils equal, round, reactive to light and accommodation. LABORATORY DATA: WBC 6.8, ANC 4.20, RBC 3.56, hemoglobin and hematocrit 13.2, 38.8, platelets 220. Chemistries are unremarkable. IMPRESSION: Cuco is a very pleasant, 52-year-old white male that presents today for scheduled day 1, cycle 8 of second line palliative treatment with combination docetaxel/ramucirumab after progression following chemotherapy/immunotherapy. Cuco reports an approximate 10-14 day history of progressive dyspnea, not only with exertion but at rest and a sense of tachycardia and also intermittent left anterior chest wall pain on the same side as the patient's Unleob-W-Dvko. No other new concerns right at this time. PLAN: 1. Obtain stat CT angio per PE protocol. 2. The patient will be held in radiology until the report has been called to me and then return to medical oncology for further decision-making. The patient is in agreement with our plan and knows to contact our office in the interim with any problems. ADDENDUM: CT Angio Chest negative for PE. Stable pleuroparenchymal changes in the right lower lobe with small right effusion. Spiculated nodular opacity in the right middle lobe along the minor fissure appears somewhat larger compared to the January 18, 2018 study. Stable right hilar and subcarinal lymph nodes. Reviewed by Marlin Weston NP 03/18/2018 10:55 A Electronically Signed by Lluvia Perez MD 03/29/2018 05:31 P DD: Marlin Weston NP 03/15/2018 10:17 A DT: marcin 03/16/2018 03:41 P CC:
[2018-03-23 08:18] VITALS: BP 114/76
[2018-03-23 08:25] LABS: HEMATOCRIT 41.5 % (37.0-51.0); HEMOGLOBIN 13.7 g/dl (12.0-18.0); LYMPH % 31.8 % (10.0-58.5); MEAN CORPUSCULAR HEMOGLOBIN 36.2 pg (26.0-32.0); MEAN CORPUSCULAR VOLUME 109.8 fl (80.0-97.0); NEUTROPHILS # 2.9 10^3/uL (2.0-7.8); NEUTROPHILS % 54.7 % (37.0-92.0); RED BLOOD COUNT 3.78 10^6/uL (4.2-6.3); WHITE BLOOD COUNT 5.3 10^3/uL (4.1-10.9)
[2018-03-23 08:33] LABS: ALBUMIN 4.3 GM/DL (3.5-5.2); BLOOD UREA NITROGEN 4 MG/DL (6-20); CALCIUM LEVEL 8.7 MG/DL (8.5-10.2); CARBON DIOXIDE LEVEL 25 MEQ/L (23-31); CHLORIDE LEVEL 101 MMOL/L (98-107); CREATININE FOR GFR 0.65 MG/DL (0.90-1.30); GLOMERULAR FILTRATION RATE > 60.0 (>56); GLUCOSE, FASTING 88 MG/DL (70-105); POTASSIUM SERUM 3.8 MMOL/L (3.5-5.1); SODIUM LEVEL 136 MMOL/L (136-145); TOTAL PROTEIN 6.7 GM/DL (6.4-8.3)
--- NOTE | 2018-03-24 10:47 | MEDONC ---
MEDICAL ONCOLOGY FOLLOWUP/RESCHEDULED TREATMENT VISIT DATE OF SERVICE: 03/23/2018 DIAGNOSES: 1. 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 2. Post thoracotomy pain, chronic improved on gabapentin (the patient has sought opioids from multiple providers; we decline providing these). 3. Treatment induced rash, likely secondary to ramucirumab involving arms, buttocks, chest October 2017, resolved and ramucirumab resumed without recurrent rash. CURRENT THERAPY: Docetaxel/ramucirumab q. 21 days, today is rescheduled day 1, cycle 8. INTERVAL HISTORY: Cuco, as he likes to be called, presents today for a scheduled followup and rescheduled day 1, cycle 8 of treatment. When I saw him most recently on 03/15/2018, he reported an approximate 10-14 day history of progressive dyspnea, not only with exertion but at rest, a sense of tachycardia, and also intermittent left anterior chest wall pain without radiation. We held chemotherapy/immunotherapy at that time and obtained a stat CT angio of the chest, which ultimately was negative for PE. It did identify stable pleural parenchymal changes in the right lower lobe with a stable small right pleural effusion. There was a piculated nodular opacity in the right middle lobe along the minor fissure appearing somewhat larger compared to January 18, 2018 study and stable right hilar and subcarinal lymph nodes. Cuco indicates that he continues to have some intermittent dyspnea, however indicates that he walked 4 miles yesterday without any problem. He reports voice hoarseness of unclear etiology, clearly denies any upper or lower respiratory type of symptoms. Also reports an onset of occipital headaches since having his narcotic discontinued by his PCP. In addition to the above, Cuco also presents today with a strong scent of EtOH use/abuse. When questioned about this, he states that he only had two beers last evening, however the smell of alcohol on his breath and in the exam room is quite overwhelming. Currently the patient denies any visual disturbance. He denies any fevers or chills, new rashes, diminished appetite, nausea, vomiting, unintended weight loss. new skeletal pain or extremity edema. PHYSICAL EXAMINATION: Weight is 79 kg, temperature 97.4, pulse 103, respirations 20, BP 114/76, O2 sat 95% at rest on room air. GENERAL: Exam reveals a pleasant, white male who is comfortable and unfortunately carries a strong scent of alcohol on his breath. He is alert and oriented. HEENT: No scleral icterus. Oral pharynx, oral mucous membranes normal. Conjunctivae normal. No thyroid enlargement or nodule. No jugular venous distention. Neck supple. Carotid upstrokes 1+, no bruits. Fundi normal bilaterally. RESPIRATORY: Lungs clear bilaterally to auscultation and percussion. No rales, rhonchi, or wheezing. CARDIOVASCULAR: PMI 5th left intercostal space, midline. S1, S2 normal. No S3, S4 or murmurs. Regular rhythm. Femoral, dorsalis pedis pulses 2+ bilaterally. LYMPHATICS: No palpable lymphadenopathy. ABDOMEN: Soft, nontender. Bowel sounds normal. No tenderness, guarding, or rebound. No palpable masses or hepatosplenomegaly. MUSCULOSKELETAL: No focal skeletal tenderness to percussion. No joint swelling, warmth, tenderness, or erythema. SKIN: No rash, ecchymosis, or petechiae. Normal turgor. EXTREMITIES: No edema, clubbing, cyanosis. No thigh or calf tenderness. Normal range of motion. LABORATORY DATA: WBC 5.3, ANC 2.9, RBC 3.78, hemoglobin and hematocrit 13.7 and 41.5, platelets 139. Chemistries are pending as of this dictation. IMPRESSION: Cuco presents today for delayed day 1 scheduled 8th dose of Taxol/ramucirumab. He continues to report dyspnea with exertion, which is clearly different from baseline. No clear-cut cardiac symptoms at this time. Recent CT chest angio negative for PE. I did suggest that the patient go to the ED for further cardiac evaluation due to the aforementioned persistent symptoms and his tachycardia, however he adamently declines. I am concerned about proceeding with treatment not knowing exactly the amount of EtOH intake he has had within the last 24 hours, and also because of the noted above symptoms. PLAN: 1. Hold treatment today. 2. Recommendations to go to the ED for further evaluation from a cardiac standpoint was advised and the patient declined. 3. Obtain an a.s.a.p. MRI of the brain for the patient's complaint of occipital headaches. My index of suspicion is that this is a rebound effect from not having any narcotics, however we need to be sure that he does not have metastatic disease. 4. A.s.a.p. PET CT scan for additional diagnostic benefit. Hopefully this can be done within the next week followed by an office visit a day or two thereafter. Cuco is in agreement with our plan and knows to contact this office in the interim of his appointment with any new symptoms, questions or problems. Reviewed by Marlin Weston NP 03/24/2018 03:01 P Electronically Signed by Lluvia Perez MD 03/29/2018 05:31 P DD: Marlin Weston NP 03/23/2018 10:07 A DT: marcin 03/24/2018 10:23 A CC:
[2018-03-29 08:00] VITALS: BP 148/85
[2018-04-04 08:36] VITALS: BP 135/86
[2018-04-04 08:39] LABS: HEMATOCRIT 44.3 % (42.0-52.0); LYMPH % 32.6 % (24.0-44.0); MEAN CORPUSCULAR HGB CONC 33.9 g/dl (32.0-36.5); MEAN CORPUSCULAR VOLUME 109.3 fl (80.0-96.0); NEUTROPHILS % 56.7 % (36.0-66.0); RED BLOOD COUNT 4.05 10^6/uL (4.30-6.10); WHITE BLOOD COUNT 3.6 10^3/uL (4.0-10.0)
[2018-04-04 09:37] LABS: ALBUMIN 4.4 GM/DL (3.5-5.2); BLOOD UREA NITROGEN 8 MG/DL (6-20); CALCIUM LEVEL 9.2 MG/DL (8.5-10.2); CARBON DIOXIDE LEVEL 27 MEQ/L (23-31); CHLORIDE LEVEL 100 MMOL/L (98-107); CREATININE FOR GFR 0.64 MG/DL (0.90-1.30); GLUCOSE, FASTING 96 MG/DL (70-105); POTASSIUM SERUM 4.3 MMOL/L (3.5-5.1); SODIUM LEVEL 137 MMOL/L (136-145); TOTAL PROTEIN 6.9 GM/DL (6.4-8.3)
[2018-04-04 09:38] LABS: GLOMERULAR FILTRATION RATE > 60.0 (>56)
--- NOTE | 2018-04-08 07:54 | MEDONC ---
MEDICAL ONCOLOGY FOLLOWUP DATE OF SERVICE: 04/04/2018 DIAGNOSIS: 1. Progressive metastatic multilobar PD-L1 low bobtail driver mutation negative adenocarcinoma of lung involving an initial stage IIIB multilobar right lung disease treated with chemoradiation, recurrence with malignant pleural effusion drained and treated with second line treatment docetaxel /ramucirumab in spring 2017, now with progressive disease involving multifocal intracranial metastases, possible intrathoracic progression. 2. Post thoracotomy pain treated with gabapentin involving right anterior thorax extending from shoulder to right flank. 3. Ramucirumab associated rash treated with drug holiday, corticosteroids, resolved and no recurrence on reintroduction of drug TREATMENT HISTORY: Right lower lobe wedge resection 07/27/2016. Carboplatin/pemetrexed four cycles 08/19/2016 - 01/19/2017. Carboplatin/pemetrexed/pembrolizumab two cycles 12/02/2016 - 12/23/2016. Pembrolizumab maintenance 01/12/2017 - 06/08/2017, stopped for disease progression. June 2016 malignant pleural effusion treated with thoracentesis. Docetaxel/ramucirumab began 07/12/2017 with ramucirumab actually added in 08/02/2017. Intracranial metastases 03/25/2018 MRI showing multiple enhancing nodular lesions cerebral hemispheres and cerebellum, ranging in size from 0.1 to 1.1 cm largest supratentorial left parietal lobe, currently on palliative radiation Decadron 4 mg t.i.d. INTERVAL HISTORY: Cuco had a PET scan last Wednesday. Notably this shows several areas in the lungs but was not read directly compared to his more recent CT of the chest. I reviewed the images with Cuco. Overall, the chief findings are as follows: a right middle lobe spiculated hypermetabolic nodule as SUV 7, right hilar focus SUV 11, precarinal focus SUV 7, right lower lobe pleural-based posterior focus SUV 2, small right pleural effusion. No suspicious skeletal uptake. No liver uptake. Reviewing these it is not fully clear whether these reflect new versus January 18, when he last had a restaging chest CT. His CT angio 03/25/2018 suggested a slight increase in the size of the right middle lobe spiculated mass versus January 18 and right hilar and subcarinal nodes were deemed stable. Cuco was scheduled for a neck and cervical spine CT later this week. He had complained of radicular like symptoms relating to his right arm with numbness. His headache is much better he says. He is feeling better overall sleeping a little bit better. He is off active chemotherapy for the present. We discussed a possible change of treatment but for the time being he will complete his radiation therapy. Next line of treatment options would include a single agent taxane for example, gemcitabine, consideration of clinical trial. He has progressed through carboplatin plus pemetrexed, combination chemotherapy plus pembrolizumab, followed by pembrolizumab maintenance, intracranial progression through docetaxel/ramucirumab and suggestion of systemic progression. He has not been treated with gemcitabine, paclitaxel; he does not harbor any bobtail driver mutations and is PD-L1 low. IMPRESSION: Progressive adenocarcinoma of lung, EGFR/ALK/ROS1/KRAS negative, PD-L1 low, with intracranial metastases now undergoing palliative radiation on dexamethasone, systemic treatment held, most recently on docetaxel/ramucirumab second line. Cuco has enjoyed sustained remissions on two lines of treatment and has only what appears to be oligoprogression peripherally, though with fairly high SUVs on his PET. PLAN: 1. Continue off systemic chemotherapy/targeted therapy for now. 2. Return in 2 weeks for office visit CBC, CMP. 3. Continue palliative radiation; dexamethasone taper per radiation oncology. Electronically Signed by Lluvia Perez MD 04/08/2018 06:58 P DD: Lluvia Perez MD 04/04/2018 12:48 P DT: robert 04/08/2018 07:22 A CC: MD Chandler Puri MD Scott Stern, MD
[2018-04-27 07:59] VITALS: BP 139/86
[2018-04-27 08:26] LABS: HEMATOCRIT 42.1 % (42.0-52.0); HEMOGLOBIN 14.5 g/dl (13.5-17.5); LYMPH % 30.5 % (24.0-44.0); MEAN CORPUSCULAR HEMOGLOBIN 38.8 pg (27.0-33.0); MEAN CORPUSCULAR HGB CONC 34.4 g/dl (32.0-36.5); MEAN CORPUSCULAR VOLUME 112.6 fl (80.0-96.0); NEUTROPHILS # 2.2 10^3/uL (1.8-7.7); RED BLOOD COUNT 3.74 10^6/uL (4.30-6.10); WHITE BLOOD COUNT 3.8 10^3/uL (4.0-10.0)
[2018-04-27 08:44] LABS: ALBUMIN 4.3 GM/DL (3.5-5.2); BLOOD UREA NITROGEN 7 MG/DL (6-20); CALCIUM LEVEL 9.6 MG/DL (8.5-10.2); CARBON DIOXIDE LEVEL 25 MEQ/L (23-31); CHLORIDE LEVEL 99 MMOL/L (98-107); CREATININE FOR GFR 0.78 MG/DL (0.90-1.30); GLOMERULAR FILTRATION RATE > 60.0 (>56); GLUCOSE, FASTING 110 MG/DL (70-105); POTASSIUM SERUM 3.3 MMOL/L (3.5-5.1); SODIUM LEVEL 135 MMOL/L (136-145); TOTAL PROTEIN 6.6 GM/DL (6.4-8.3)
--- NOTE | 2018-04-27 11:15 | MEDONC ---
FOLLOWUP NOTE DATE OF SERVICE: 04/27/2018 DIAGNOSES: 1. Progressive metastatic/recurrent spike driver mutation negative, PD-L1 low adenocarcinoma of lung now status post completed whole-brain RT for intracranial metastases diagnosed March 2018. The patient initially diagnosed with clinical stage III lung cancer 03/2016 with dominant right middle lobe mass biopsy proven, staging workup revealed multilobar disease involving right middle and right lower lobe, unresectable. Treated up front with palliative combination chemotherapy carboplatin/pemetrexed times four cycles followed by carboplatin/pemetrexed/pembrolizumab for two cycles, followed by pembrolizumab maintenance until disease progression with malignant right pleural effusion July 2016. His treatment was switched to combination docetaxel/ramucirumab following right thoracentesis and pleurodesis. He did well on that treatment, but developed a rash to ramucirumab requiring treatment interruption. He also was troubled by multiple episodes of left ear otitis requiring treatment interruptions. In March, he presented with headache and was found to have multifocal intracranial metastases. He has now completed whole-brain RT. 2. Post thoracotomy pain involving right anterior thorax extending from shoulder to right flank treated with gabapentin. 3. Ramucirumab associated rash treated with corticosteroids. TREATMENT HISTORY: Please see 04/04/2018 note. INTERVAL HISTORY: Cuco completed radiation last Wednesday. He was surprised to see me expecting instead to see Marlin Weston and expresses anger at my treatment of him. He believes I have not paid attention to his complaints in the past regarding pain in the right mastoid area which predated his headache complaint leading to the head CT in March. I offered apologies, he was not consolable and somewhat escalated his complaints today. He is unhappy that I have declined to prescribe opioids at various points. 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 However, he was not seeming willing to discuss details today. Instead, he would like a different doctor. I explained this is easily arranged and that we would like to set him up with one. He did storm out of the office quite angry, but was patient enough to wait to be deaccessed. IMPRESSION: 1. Recurrent right lung spike driver mutation negative, PD-L1 low adenocarcinoma status post two lines of treatment, including up front combination carboplatin/pemetrexed, followed by combination carboplatin/pemetrexed/pembrolizumab with pembrolizumab maintenance, and docetaxel/ramucirumab with good response to both treatments, now status post completion of whole-brain RT for multiple intracranial metastases. Current chest restaging shows small volume multifocal lung sites which it is not entirely clear are progressed in March versus February. I plan to review his case in tumor board today in order to assess whether there is true systemic progression or whether the progression is only intracranial at this point as it bears on next treatment decisions versus observation. Cuco is unhappy with his care under my direction and would like a different physician, which we will work hard to help arrange for him. PLAN: 1. Return to clinic within 1-2 weeks, either with Dr. Dunn or one of our upcoming butcher assistant, 2. Discuss case in tumor board and establish whether there is systemic progression in addition to intracranial progression or stable disease in the chest. Electronically Signed by Lluvia Perez MD 04/28/2018 11:38 A DD: Lluvia Perez MD 04/27/2018 10:18 A DT: scott 04/27/2018 10:52 A CC: Manuel Rodriguez MD
[2018-05-06 07:55] VITALS: BP 142/88
[2018-05-06 08:02] LABS: HEMATOCRIT 42.4 % (42.0-52.0); HEMOGLOBIN 14.1 g/dl (13.5-17.5); MEAN CORPUSCULAR HEMOGLOBIN 37.3 pg (27.0-33.0); MEAN CORPUSCULAR HGB CONC 33.3 g/dl (32.0-36.5); MEAN CORPUSCULAR VOLUME 112.3 fl (80.0-96.0); NEUTROPHILS # 2.3 10^3/uL (1.8-7.7); NEUTROPHILS % 55.9 % (36.0-66.0); RED BLOOD COUNT 3.78 10^6/uL (4.30-6.10); WHITE BLOOD COUNT 4.2 10^3/uL (4.0-10.0)
[2018-05-06 09:23] LABS: ALBUMIN 4.4 GM/DL (3.5-5.2); BLOOD UREA NITROGEN 12 MG/DL (6-20); CALCIUM LEVEL 9.9 MG/DL (8.5-10.2); CARBON DIOXIDE LEVEL 28 MEQ/L (23-31); CHLORIDE LEVEL 99 MMOL/L (98-107); GLOMERULAR FILTRATION RATE > 60.0 (>56); GLUCOSE, FASTING 91 MG/DL (70-105); POTASSIUM SERUM 3.9 MMOL/L (3.5-5.1); SODIUM LEVEL 137 MMOL/L (136-145); TOTAL PROTEIN 6.6 GM/DL (6.4-8.3)
--- NOTE | 2018-05-07 13:03 | MEDONC ---
MEDICAL ONCOLOGY OFFICE NOTE DATE OF SERVICE: 05/06/2018 Please refer to the patient's progress note of 04/27/2018. This is my first visit with this gentleman who has requested a different oncologist. The patient has had progressive recurrent adenocarcinoma of the lung, and has undergone a whole brain radiation therapy for intracranial metastatic disease that was diagnosed in March 2018. The patient has received combined modality chemotherapy and radiation with carboplatinum and pemetrexed times four cycles followed by the addition of pembrolizumab and for additional two and has been on pembrolizumab maintenance until that time. He had developed a right pleural effusion and in that interval has not developed any signs of shortness of breath or any recurrence. His most recent chemotherapy was docetaxel and ramucirumab; however he did get a rash with the a monoclonal antibody which had caused him to stop. He has had a couple of episodes of infection or otitis requiring that his treatment be held. He now had restaging showing small multifocal lung sites on PET scan. His case was reviewed in tumor board and he clearly shows persistent disease. He had been initially hostile on the initial first 20 minutes of the interview with him. It is unclear if this is his baseline personality or if this is a result of radiation and metastatic disease. He has been taking gabapentin for post thoracotomy pain. However, he was concerned that this may have been a sign of metastatic disease that was not clear to him whether this was addressed by medical records coder. His past medical history is above noted. Please refer to his note of 04/04/2018. He currently now is not in any pain or distress. His had no hemoptysis and is still able to take care of all of his daily needs. His past medical history includes polysubstance abuse, alcohol abuse, history of a seizure disorder, impaired hearing. He has had a history of depression and anxiety. FAMILY HISTORY: His mother is alive and well and healthy. Father is . His father also had a history of seizures. He has a brother who suffers from seizures as well and is on Dilantin. CURRENT MEDICATIONS: Include: - albuterol sulfate 2 puffs q.6 h - Depakote 1000 mg p.o. b.i.d. - dexamethasone 4 mg p.o. t.i.d. - hydroxyzine hydrochlorothiazide 25 mg p.o. b.i.d. - ibuprofen 800 mg p.o. b.i.d. - Dilantin 600 mg p.o. q.h.s. - Seroquel 300 mg p.o. q.h.s. - Seroquel 100 mg p.o. daily - ranitidine 150 mg p.o. b.i.d. - zolpidem tartrate 10 mg p.o. q.p.m. ALLERGIES: He has no known drug allergies. REVIEW OF SYSTEMS: He has had no visual disturbances. No ringing in the ears. Currently has had no pruritus or irritation or infection on his left ear with the exception of some small area of irritation on the external pinna or the tragus of the ear. He has had no problems with his mouth. He has poor dentition. No chest pain. He relates that he is able to walk around to increase his activities of daily living without any problems, and he has no problems with urination or any back pain. He does complain of pain on the right side of the neck with radiation down to the right arm. Positional changes do not make it any better or any worse nor does it cause any alleviation. It is a fleeting sort of pain that stays with him just for a few seconds and then goes away. He has anxiety regarding this as he feels that this may be related to cancer because it is on the same side that he had the radiation to the brain. Otherwise, he has had no seizures and he has no new numbness or tingling, loss of control of an extremity or an arm. PHYSICAL EXAMINATION: On his physical examination the patient weighs 79 kg, his BMI is 23.7. His HEENT is normocephalic, atraumatic. PERRL. EOMI. His sclera is otherwise white, it is nonicteric. His oropharynx is otherwise clear. His neck is supple with no adenopathy. His chest has decreased breath sounds at the bases. Cardiovascular: S1-S2 are appreciated with no murmurs. His abdomen is nontender. He has no ascites. His extremities he has no numbness or tingling currently. He has no focal deficits, sensory or motor. Cranial nerves II-XII are intact. His original pathology is consistent with in 2016 15% positive PD-L1 testing, ALK negative and negative for the ROS1 gene. Negative for the EGFR mutation. Pathology is consistent for the right lung lower lobe wedge resection positive for malignancy consistent with metastatic adenocarcinoma of lung primary. The carcinoma shows some papillary features. There is approximately 8-9 separate nodules of carcinoma varying from 0.2 to 1 cm. The tumor cells show strong TTF-1 staining. PAX8 stain shows nonspecific staining. Laboratory shows a WBC count of 4.2, hemoglobin and hematocrit of 14.1/42.4, MCV of 112, RDW of 12.4, platelets 171,000. IMAGING STUDIES: The PET scan shows several hypermetabolic foci in the chest involving the right middle lobe, spiculated density, a right pleural soft tissue density, and a right hilar and a precarinal node, all felt to be suspicious. The precarinal node has a standard uptake value of 7.4 and the right hilar SUV is 11.3. The pleural focus of thickening and mild hypermetabolic uptake just posterior to the major fissure in the right lower lobe has a maximum standard uptake value of 2.2. There is also a small right pleural effusion. There is no hypermetabolic uptake seen within the right pleural effusion. There is no abnormal adrenal hypermetabolic uptake and there is no other abnormal intrathoracic hypermetabolic uptake that has been noted. ASSESSMENT: Adenocarcinoma of the lung with persistence of disease. PLAN: Plan is do repeat comparison of the nodules. The CT scan findings back in January 2018 have measured mediastinal and hilar adenopathy up to 19 mm and a 2.5 cm ill-defined density in the residual right middle lobe. The lymph nodes were measuring up to 19 mm. The nodes would have to be measured, they were not reported as measurable disease on his PET scan findings of 03/30/2018, which certainly would be helpful. I have advised the patient that I will be reviewing these and will be getting back to him for further discussions about treatment modalities for him as well. Electronically Signed by Carole Dunn MD 05/10/2018 07:55 A DD: Carole Dunn MD 05/06/2018 02:59 P DT: robert 05/07/2018 12:29 P CC:
[2018-05-17 08:21] LABS: HEMOGLOBIN 15.3 g/dl (13.5-17.5); LYMPH % 24.5 % (24.0-44.0); MEAN CORPUSCULAR HEMOGLOBIN 39.7 pg (27.0-33.0); MEAN CORPUSCULAR HGB CONC 35.6 g/dl (32.0-36.5); MEAN CORPUSCULAR VOLUME 111.8 fl (80.0-96.0); NEUTROPHILS # 3.1 10^3/uL (1.8-7.7); NEUTROPHILS % 65.3 % (36.0-66.0); RED BLOOD COUNT 3.85 10^6/uL (4.30-6.10); WHITE BLOOD COUNT 4.7 10^3/uL (4.0-10.0)
[2018-05-17 08:30] LABS: ALBUMIN 4.4 GM/DL (3.5-5.2); BLOOD UREA NITROGEN 6 MG/DL (6-20); CALCIUM LEVEL 9.2 MG/DL (8.5-10.2); CARBON DIOXIDE LEVEL 27 MEQ/L (23-31); CHLORIDE LEVEL 97 MMOL/L (98-107); CREATININE FOR GFR 0.79 MG/DL (0.90-1.30); GLUCOSE, FASTING 122 MG/DL (70-105); POTASSIUM SERUM 3.7 MMOL/L (3.5-5.1); SODIUM LEVEL 136 MMOL/L (136-145); TOTAL PROTEIN 6.9 GM/DL (6.4-8.3)
[2018-05-17 08:35] LABS: GLOMERULAR FILTRATION RATE > 60.0 (>56)
--- NOTE | 2018-05-19 18:57 | MEDONC ---
MEDICAL ONCOLOGY OFFICE NOTE DATE OF SERVICE: 05/17/2018 This is a very pleasant gentleman who has had a history of recurrent adenocarcinoma of the lung status post whole-brain radiation therapy for intracranial disease, underwent combined modality chemotherapy and radiation with carboplatinum and pemetrexed times four cycles followed by the addition of Keytruda and is currently on Keytruda maintenance. The patient had during the course of his treatment complicated with a right pleural effusion. The patient then showed progression and was placed on docetaxel and ramucirumab and is currently on this therapy and tolerating it well. He had complained of a rash and had his treatment and therapy upheld due to otitis externa that required an oral antibiotic therapy. He is here today to assess whether or not he can continue with treatment and is due for cycle number three. His CT scan on his most recent examination had shown stable disease. He had shown mediastinal and hilar left adenopathy up to 19 mm and a 2.5 cm residual right middle lobe nodule. PAST MEDICAL HISTORY: Is as above noted. His past family history, medications and allergies have all remained unchanged since his office visit date of 05/06/2018. CURRENT MEDICATIONS: Include: - albuterol sulfate 2 puffs q.6 h - Depakote 1000 mg p.o. b.i.d. - dexamethasone 4 mg p.o. t.i.d. - hydroxyzine hydrochlorothiazide 25 mg p.o. b.i.d. - Dilantin 600 mg p.o. q.h.s. - Seroquel 300 mg p.o. q.h.s. - Seroquel 100 mg p.o. daily - ranitidine 150 mg p.o. b.i.d. REVIEW OF SYSTEMS: He has had no visual disturbances, double vision, ringing in the ears. No discharge from the right ear or the left ear. No problems with swallowing, nausea, vomiting, diarrhea, constipation. Remainder of the 12-point review of systems is otherwise essentially negative. PHYSICAL EXAMINATION: Vital signs: Temperature is 98.9. His pulse is 100, respiratory rate is 20, BP is 142/88, pulse oximetry is 94. HEENT: Normocephalic, atraumatic. PERRL. EOMI. Sclerae is white, nonicteric. Oropharynx is otherwise clear. Neck: Supple with no adenopathy. Chest: Clear to auscultation and percussion. Cardiovascular: S1 and S2 are appreciated with no murmurs. Abdomen: Otherwise soft, nontender. Extremities: Show no cyanosis, no clubbing or any edema. Skin: Shows no rashes. Neurological examination: Cranial nerves II-XII are grossly intact. LABORATORIES: WBC count is 4.7. His hemoglobin is 15.3 over 43, MCV is 111, RDW is 12.3, platelets are 197,000, neutrophils are 65, lymphocytes 24. On his serum chemistries sodium is 136, potassium 3.7, chloride is 97, BUN is 27, creatinine is 0.79, fasting glucose is 122, calcium is 9.2, total bilirubin 0.4, AST is 16, ALT is 5, alkaline phosphatase is 47, total protein is 6.9, albumin is 4.4. IMAGING: On his most recent imaging studies CT scan of the neck shows no evidence of skeletal or soft tissue metastatic disease in the neck, osteoarthritic facet changes are noted in the right mid cervical region and moderate degenerative spondylolysis also noted. On his PET nuclear scan done on 03/30/2018 the patient shows several hypermetabolic foci in the chest involving the right middle lobe, spiculated density, a right pleural soft tissue density and a right hilar and precarinal lymph node, all felt to be suspicious. These have a standard uptake value of 7.1. There is also noted to be a small right pleural effusion and there is no evidence of any adrenal hypermetabolic disease. IMPRESSION: Two small areas of the chest involving the right middle lobe and right hilar precarinal lymph node, currently stable on current therapy. PLAN: Continue current therapy. No dose modifications required. Plan is to have the patient follow up in three weeks' time. Followup as needed p.r.n. for any symptomatology that may occur. Followup with the oncologist in 3 weeks. Nurse practitioner can see the patient in 1 week, 2 weeks as needed. Electronically Signed by Carole Dunn MD 05/20/2018 01:53 P DD: Carole Dunn MD 05/19/2018 08:14 A DT: eufemia 05/19/2018 06:37 P CC:
[2018-05-27 09:01] VITALS: BP 123/70
[2018-05-27 09:10] LABS: HEMATOCRIT 44.5 % (42.0-52.0); HEMOGLOBIN 15.1 g/dl (13.5-17.5); LYMPH % 20.5 % (24.0-44.0); MEAN CORPUSCULAR HEMOGLOBIN 38.2 pg (27.0-33.0); MEAN CORPUSCULAR HGB CONC 33.9 g/dl (32.0-36.5); MEAN CORPUSCULAR VOLUME 112.6 fl (80.0-96.0); NEUTROPHILS # 3.7 10^3/uL (1.8-7.7); NEUTROPHILS % 68.1 % (36.0-66.0); RED BLOOD COUNT 3.95 10^6/uL (4.30-6.10); WHITE BLOOD COUNT 5.5 10^3/uL (4.0-10.0)
[2018-05-27 09:27] LABS: ALBUMIN 4.1 GM/DL (3.5-5.2); BLOOD UREA NITROGEN 4 MG/DL (6-20); CALCIUM LEVEL 8.9 MG/DL (8.5-10.2); CARBON DIOXIDE LEVEL 27 MEQ/L (23-31); CHLORIDE LEVEL 98 MMOL/L (98-107); CREATININE FOR GFR 0.69 MG/DL (0.90-1.30); GLUCOSE, FASTING 121 MG/DL (70-105); POTASSIUM SERUM 3.5 MMOL/L (3.5-5.1); SODIUM LEVEL 137 MMOL/L (136-145); TOTAL PROTEIN 6.5 GM/DL (6.4-8.3)
[2018-05-27 09:30] LABS: GLOMERULAR FILTRATION RATE > 60.0 (>56)
--- NOTE | 2018-05-27 10:22 | MEDONC ---
MEDICAL ONCOLOGY URGENT ASSESSMENT DATE OF SERVICE: 05/27/2018 Cuco is here to resume treatment with docetaxel/ramucirumab after completing whole-brain radiation for recently discovered intracranial metastases. This would be day 1 of 6 planned cycles; he has been treated with docetaxel/ramucirumab previously his last treatment 02/22/2018. He complained to the nurse today of feeling some chest discomfort and earache. Cuco is well known to me from the clinic. He has chronic intermittent otitis externa/otitis media, frequently receives antibiotic courses, currently on an antibiotic he cannot name and I am unable to find that in the treatment summary he shows me. However, he says his ear hurts and this morning he felt some sternal area and right of sternum chest discomfort not on the surface but inside. His breathing is okay he says, though he has had a recent cough and hoarseness and respiratory symptoms. He denies orthopnea, leg swelling, chest pressure with exertion, chest pain per se. He has had a productive cough. Denies hemoptysis. PHYSICAL EXAMINATION: Weight 79 kg, temperature 98.5, blood pressure 123/70, heart rate 103, respiratory 18, O2 sat 97%. Patient is a normal weight, middle-aged man seated in the chair, making good eye contact, does not appear overly fatigued. Respiratory: Slight decreased breath sounds in the right base, but otherwise good air movement throughout. Left lung anteriorly and posteriorly clear. No wheezes. No rales. No pretracheal stridor. Cardiac: S1, S2, regular rate and rhythm. No murmur. No gallop. Abdomen is soft, nontender. Extremities: No edema. HEENT: Right ear canal and tympanic membrane appear normal. Left ear canal visibly slightly swollen and erythematous. Tympanic membrane with good light reflex. No evidence of exudate or cloudiness. LABORATORY DATA: WBC 5.5, hemoglobin 15, hematocrit 44, platelets 102. Electrolytes unremarkable. AST, ALT slightly elevated 66 and 46, respectively. IMPRESSION: 52-year-old man with history of metastatic lung cancer recently diagnosed with intracranial metastases after being treated for thoracic metastatic cancer. He previously had a right pleural effusion, was drained and at that point about a year ago started on docetaxel/ramucirumab with good response. He is here to resume the drug combination after an approximate 3-month hiatus. Lung exam today mostly unremarkable but he has upper and lower respiratory symptoms, possibly a viral bronchitis. Vital signs otherwise stable. PLAN: 1. Cuco will take a 1-week holiday before starting the docetaxel/ramucirumab. 2. Complete antibiotics as prescribed by primary care. 3. I cautioned Cuco to let us know if his chest symptoms in any way worsen. 4. Return in 1 week, CBC, CMP, repeat brief office visit for reassessment at that time. 5. As a precaution PA and lateral chest x-ray today to rule out recurrent effusion and/or progressive bulky progressive chest metastases. Electronically Signed by Lluvia Perez MD 05/27/2018 12:30 P DD: Lluvia Perez MD 05/27/2018 09:38 A DT: marcin 05/27/2018 10:10 A CC: Carole Dunn MD
[2018-06-02 09:15] LABS: HEMOGLOBIN 15.3 g/dl (13.5-17.5); LYMPH % 23.7 % (24.0-44.0); MEAN CORPUSCULAR HEMOGLOBIN 36.8 pg (27.0-33.0); MEAN CORPUSCULAR HGB CONC 33.3 g/dl (32.0-36.5); MEAN CORPUSCULAR VOLUME 110.5 fl (80.0-96.0); NEUTROPHILS % 64.5 % (36.0-66.0); RED BLOOD COUNT 4.16 10^6/uL (4.30-6.10); WHITE BLOOD COUNT 4.7 10^3/uL (4.0-10.0)
[2018-06-02 09:21] VITALS: BP 142/83
[2018-06-02 09:33] LABS: ALBUMIN 4.5 GM/DL (3.5-5.2); BLOOD UREA NITROGEN 4 MG/DL (6-20); CALCIUM LEVEL 9.5 MG/DL (8.5-10.2); CARBON DIOXIDE LEVEL 28 MEQ/L (23-31); CHLORIDE LEVEL 97 MMOL/L (98-107); CREATININE FOR GFR 0.84 MG/DL (0.90-1.30); GLOMERULAR FILTRATION RATE > 60.0 (>56); GLUCOSE, FASTING 95 MG/DL (70-105); POTASSIUM SERUM 3.8 MMOL/L (3.5-5.1); SODIUM LEVEL 137 MMOL/L (136-145)
--- NOTE | 2018-06-04 09:04 | MEDONC ---
HEMATOLOGY/ONCOLOGY PROGRESS NOTE DATE OF SERVICE: 06/02/2018 Reason for visit is followup and evaluation of chemotherapy. The patient has a non-small cell lung carcinoma with a history of intracranial metastatic disease status post resection and whole-brain radiation therapy. He is due for a dose of Taxol and ramucirumab therapy. He has been doing well with this, however his therapies have been upheld due to intermittent otitis externa. The patient continues to place antibiotic drops into the left external ear canal. He has no pain in the area and denies any history of any fever as well. The patient's past family, medical and surgical history have all remained unchanged since his office visit of 05/06/2018. On the patient's allergies, the patient has NO KNOWN DRUG ALLERGIES. On his current medications he has: -albuterol sulfate 108 mcg 2 puffs q.4-6 h - Depakote 1000 mg p.o. b.i.d. - dexamethasone as a premedication for chemotherapy 4 mg p.o. b.i.d. the day before, the day of and the day after chemotherapy - hydroxyzine hydrochlorothiazide 25 mg p.o. b.i.d. - ibuprofen 600 mg tablets one p.o. t.i.d. - meloxicam 7.5 mg p.o. daily - Dilantin 600 mg p.o. q.h.s. - Seroquel 300 mg p.o. q.h.s. - Seroquel 100 mg p.o. daily - Zantac 150 mg 2 tablets p.o. daily - Ambien 10 mg p.o. q.h.s. p.r.n. for insomnia On the patient's review of systems, he has had no visual disturbances. No problems with any loss of vision. He has had no seizure activity. Denies any history of any tremor. He has had no problems swallowing. His left ear he has had no discharge but he continues to put the eardrops. He has had no pain. He has had no fevers or chills. He denies any chest pain, cough, hemoptysis any nausea, vomiting, diarrhea, constipation or any hematuria. He has had no dysuria. No numbness or tingling of the fingertips and toes. Denies any history of any skin rash. The remainder of the 12-point review of systems is otherwise negative. On his physical examination, his weight is 77.6 kg. His body surface area is 1.99. Temperature is 98, pulse is 68, respiratory rate is 20, BP is 142/83, pulse oximetry is 97. His HEENT is normocephalic, atraumatic. PERRL. EOMI. Sclerae is otherwise white, it is nonicteric. On the left external auditory canal, the patient shows no signs of any recent infection. The are is moist. No erythema. No edema. No exudates. No redness or tenderness or swelling. The pinnae of the ear is intact without any swelling as well. There is no palpable adenopathy noted. Oropharynx is clear. This no signs of any thrush. His chest is clear to auscultation and percussion. Cardiovascular: S1 and S2 are appreciated with no murmurs. His abdomen is otherwise soft, nontender. His extremities show no cyanosis, no clubbing, any edema. Cranial nerves II-XII are grossly intact. On his laboratories, his WBC count is 4.7, his hemoglobin and hematocrit is 15.3 over 46, MCV is 110 over 5 , RDW is 11.5, platelets are 157,000, neutrophils of 64, lymphocytes of 23. Monocytes were about 11.8. The patient had his most recent imaging studies done in March with his PET scan, which were reviewed on the prior visit and there is several hypermetabolic foci in the chest involving the right middle lobe, spiculated density in the right pleural soft tissue density, a right hilar and a precarinal lymph node as well. No uptake. The patient had an MRI done on 03/25/2018 showing multiple enhancing nodular lesions present in the cerebral hemispheres and cerebellum. Impression at this time is: 1. Stage IV adenocarcinoma of the lung by virtue of cerebral metastases now status post chemo radiation therapy ECOG PS 1/4 Plan is to: 1. Continue the Taxotere with the ramucirumab therapy as scheduled. 2. Monitor for any signs of any progression of disease of the cerebellum. 3. Do restaging at 3-month intervals. 4. Assess the possibility of CyberKnife therapy in this patient for the lung nodules. This will depend upon the patient's response in the brain as well. 5. Patient will be returning in 3 weeks. Laboratories in 3 weeks will be CBC, CMP and LDH. Electronically Signed by Carole Dunn MD 06/07/2018 10:37 A DD: Carole Dunn MD 06/03/2018 07:15 A DT: marcin 06/04/2018 08:47 A CC:
--- NOTE | 2018-07-20 09:22 | MEDONC ---
HEMATOLOGY/ONCOLOGY PROGRESS NOTE DATE OF SERVICE: 07/14/2018 REASON FOR VISIT: This is a very pleasant 61-year-old gentleman with a known history of non-small cell lung carcinoma. The patient had a history of intracranial metastatic disease status post resection and whole brain radiation therapy. He is currently on Taxol and ramucirumab therapy. The patient has been tolerating this well and has healed from his history of otitis externa. He has currently no pain in the area and has completed his full course of antibiotic therapy. He has had no problems with any swallowing, cough, fever, night sweats or any visual disturbances. His past medical, family and surgical history have all remained unchanged since his office visit of 05/06/2018. He has no known drug allergies. His current medications include: - albuterol sulfate - Depakote 1000 mg p.o. b.i.d. - dexamethasone 4 mg p.o. t.i.d. - hydroxyzine hydrochlorothiazide 25 mg p.o. b.i.d. - ibuprofen 1 tablet p.o. t.i.d. x10 days - meloxicam 7.5 mg daily - Dilantin 100 mg tablets, he takes 600 mg at bedtime - Seroquel 300 mg p.o. q.h.s. - Seroquel 100 mg in a.m. - ranitidine 150 mg p.o. b.i.d. - Ambien 10 mg p.o. as needed REVIEW OF SYSTEMS: 1. CONSTITUTIONAL: No weight loss, fever chills or night sweats. Generalized fatigue and weakness at the end of the day. Patient has no focal deficit. 2. EYES: No blurring of vision, no visual loss partial or complete, no tearing, redness. 3. EAR, NOSE, THROAT and MOUTH: No hearing loss, sinusitis, sore throat, dental problems, tooth pain. Denies dysphagia, mouth sores, bleeding. 4. RESPIRATORY: Denies asthma, wheezing, cough, sputum production. 5. GI: No nausea, vomiting, diarrhea or constipation, change in color or caliber of stool. No hemorrhoids. No rectal bleeding. No hematemesis, heartburn. 6. : No hematuria, dysuria, frequency, stones. 7. CV: No chest pain, palpitations, murmur, fainting, lightheadedness or chest pressure. 8. ENDOCRINE: No cold or heat intolerance, diabetes, polyuria, polydipsia. 9. MUSCULOSKELETAL: No new joint stiffness, joint swelling, myalgias, gout. He has 4/5+ strength. 10. ALLERGY/IMMUNOLOGY: No new allergies to food, medications. 11. HEMATOLOGICAL: Denies bruising, bleeding, lymph node enlargement. 12. PSYCHIATRIC: Denies depression, agitation, memory loss, panic attacks. 13. SKIN: Denies rashes, moles, dryness, pigment changes. 14. NEUROLOGIC: Denies dizziness, syncope, seizures, vertigo, weakness, tremor. PHYSICAL EXAMINATION: The patient has a temperature of 98, pulse is 68, respiratory rate is 20, BP is 142/83 and pulse oximetry is 97. HEENT is normocephalic. The patient has prior craniotomy scar which is well-healed. He has no signs of any visual disturbances. No problems with any mouth pain, neck pain, dental issues. Denies any history of any shortness of breath or palpitations. He has no nausea, vomiting, diarrhea or any constipation. His cranial nerves II-XII are grossly intact. He has no focal deficits. On his laboratories, the patient has a WBC count of 4.7, hemoglobin of 15.3 over 46, MCV is 110, platelet counts are 157, neutrophils of 64, lymphocytes of 23. Serum chemistries: Sodium is 137, potassium 3.7, chloride 97, CO2 was 28, BUN is 4, creatinine 0.84, AST is 29, ALT is 14, alkaline phosphatase is 65. The patient's most recent imaging studies were PET scan was done on 03/30/2018 shows several hypermetabolic foci in the chest involving the right middle lobe spiculated density. Resolution of the otitis externa infection. 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 PLAN: Continue therapy with the docetaxel and the ramucirumab. Also have the patient go for reevaluation and restaging. The patient will also be followed up by neurosurgery at [facility]. Electronically Signed by Carole Dunn MD 07/20/2018 03:58 P DD: Carole Dunn MD 07/19/2018 05:16 P DT: eron 07/20/2018 08:58 A CC:
[2018-10-26 07:59] VITALS: BP 120/81
[2018-10-26 09:12] LABS: HEMATOCRIT 40.3 % (42.0-52.0); HEMOGLOBIN 13.4 g/dl (13.5-17.5); LYMPH % 20.1 % (24.0-44.0); MEAN CORPUSCULAR HEMOGLOBIN 36.2 pg (27.0-33.0); MEAN CORPUSCULAR HGB CONC 33.3 g/dl (32.0-36.5); MEAN CORPUSCULAR VOLUME 108.9 fl (80.0-96.0); NEUTROPHILS # 3.3 10^3/uL (1.8-7.7); RED BLOOD COUNT 3.7 10^6/uL (4.30-6.10); WHITE BLOOD COUNT 4.8 10^3/uL (4.0-10.0)
[2018-10-26 10:06] LABS: ALBUMIN 4.5 GM/DL (3.5-5.2); BLOOD UREA NITROGEN 3 MG/DL (6-20); CARBON DIOXIDE LEVEL 25 MEQ/L (23-31); CHLORIDE LEVEL 100 MMOL/L (98-107); CREATININE FOR GFR 0.61 MG/DL (0.90-1.30); GLOMERULAR FILTRATION RATE > 60.0 (>56); GLUCOSE, FASTING 84 MG/DL (70-105); SODIUM LEVEL 136 MMOL/L (135-145); TOTAL PROTEIN 6.8 GM/DL (6.4-8.3)
--- NOTE | 2018-10-27 18:16 | MEDONC ---
HEMATOLOGY/ONCOLOGY PROGRESS NOTE DATE OF SERVICE: 10/26/2018 Date of : 1965 Age: 53 REASON FOR VISIT This is a very pleasant 53-year-old gentleman who has a past medical history significant for stage IV non-small cell lung carcinoma by virtue of cerebral metastases. The patient is status post resection and whole brain radiation therapy. The patient has been absent and lost to followup for approximately 4 months. His last visit here in the center was 06/02/2018. He states that he had been at home and had been suffering watery diarrhea. He has a sister who is a nurse who has been checking up on him. But unfortunately he has not come to any of his followup appointments. He has had a history of non -compliance that has interrupted his treatments . The patient's treatment history is as follows: 1. Unresectable stage III B multilobular right lung carcinoma PD-L1 low expression adenocarcinoma on second line palliative immunotherapy. 2. Post thoracotomy right thoracic pain on gabapentin. 3. History of a rash on buttocks and chest in October of 2017. 4. History of otitis media with Staphylococcus aureus. 5. Metastatic recurrence involving malignant pleural effusion. Chemotherapy with Taxol and Ramucirumab. The patient's last treatment was on 06/02/2018. PAST MEDICAL HISTORY: History of polysubstance abuse. History of seizure disorder. Alcohol abuse. Bilateral hearing loss. History of depression. FAMILY HISTORY: Mother is healthy. Father is . Had a history of seizures. He has a brother who suffers from seizures who is currently on Dilantin as well. He has a sister who is currently a nurse, apparently in good health. CURRENT MEDICATIONS: - albuterol sulfate - Augmentin 875 1 tablet p.o. for 10 days - Ciprodex otic suspension 4 drops b.i.d. - Depakote 1000 mg p.o. b.i.d. - hydroxyzine 25 mg p.o. b.i.d. - ibuprofen 1 tablet p.o. t.i.d. - meloxicam 7.5 mg p.o. daily - metoprolol 25 mg p.o. q. 24 - Dilantin 600 mg p.o. q.h.s. - phenytoin sodium extended 100 mg capsules p.o. daily - Seroquel 400 mg p.o. daily and 300 mg at bedtime - Zantac 150 mg p.o. b.i.d. - Ambien 10 mg p.o. p.r.n. REVIEW OF SYSTEMS: Is notable for marked rash, swelling with round welts with desquamation of the skin. The patient states that he had been mowing the lawn, that the lawn had gone to at least the size of up to mcfp of his lower leg and that he also stated that his neighbor had been using some form of chemicals on his lawn. He spent a good part of the day at least 3-4 hours mowing the lawn outside and then states that he had developed this rash on the upper extremities. It spares his face. It is mostly on the upper right and upper left forearm. He has a few spots in the posterior area on the trunk. It spares the abdominal area. This nothing in the oral cavity and he has no problems swallowing. He stated that it started to peel and he had gone to see a physician who prescribed triamcinolone cream and ointment but that it has not improved. He is negative for any seizures; still remains with severe impaired hearing loss and the diarrhea that prevented him from coming to visits and followup had pretty much abated after about 2 weeks and by June. The patient has no reasonable explanation as to what the time gap was between May and between today's date October 26. He is due for routine followup for radiation oncology on November 09. The remainder of his 12-point review of systems is otherwise negative. PHYSICAL EXAMINATION: His height is 182 cm, weight is 67.9, BSA is 1.85, BMI is 20.3 kg. On his skin examination he has no areas in the scalp with any rash, no periorbicular or periorbital areas of erythema. Neck: Few scattered areas in the base of the neck. He has ring-like lesions with the desquamation on the upper extremities bilaterally that involve the palm, the dorsal aspect of the hand, the whole anterior forearm and upper arms and the posterior chest as well. His neurological examination appears to be intact. There appears to be no cranial focal deficits. No sensory motor deficits. His oropharynx is free of any buccal mucosa. There is no rash. No lesions. No thrush. Chest is clear to auscultation and percussion. Cardiovascular: S1 and S2 are appreciated. His abdomen is otherwise soft, nontender. His extremities show no cyanosis, clubbing or any edema. Please see the skin examination to explain the rash. There is no rash on the lower extremities, on the lower watson area or the legs. Most of his rash is limited to bilateral upper extremities on the right and on the left, the palmar in the dorsal aspects of the hands. LABORATORIES: On review of the patient's prior PET scans, one was done in March of 2018 for restaging. At that time there was shown to be: 1. A spiculated nodule in the right middle lobe was hypermetabolic with an SUV of 7.1. 2. There was also a rounded hypermetabolic focus in the right hilus with a maximum standard uptake of 11.3 consistent with right hilar lymphadenopathy. 3. Precarinal hypermetabolic node with maximum standard SUV of 7.4. 4. Pleural focus of thickening and mildly hypermetabolic uptake just posterior to the major fissure in the right lobe with an SUV of 2.25. There is a small right pleural effusion. There is no hypermetabolic uptake seen within the right pleural effusion. No abnormal adrenal hypermetabolic uptake is taken and there is multifocal normal variant skeletal muscle uptake. On his brain MRI done on March 25, 2018 shows: 1. Multiple enhancing metastatic lesions in the cerebral hemispheres and in the cerebellum. Pathology is consistent with adenocarcinoma of the lung. 2. PD-L1 15% positive, ALK rearrangement is negative. ROS1 is negative. EGFR mutation is not detected. ASSESSMENT: 1. Stage IV adenocarcinoma lung PD-L1 low expression at 15% with a ROS1, ALK, EGFR negative. 2. Recurrence of a rash thought initially to be attributed to the Cyramza and Taxotere chemotherapy derivative. The patient has now been off of that medication and the patient has a recurrence for unknown reasons. This looks like it has some form of contact reaction as it is limited to the upper extremities. The patient has had a history of polysubstance abuse in the past and could be exposing himself to unknown antigens. PLAN: Is to give the patient a Medrol Dosepak to see if the rash defervesced, have him follow up in about a week or two to see if the rash has gone and then consider restaging the patient with PET and MRI. Electronically Signed by Carole Dunn MD 10/28/2018 07:42 A DD: Carole Dunn MD 10/26/2018 08:26 A DT: eufemia 10/27/2018 05:44 P CC: MD Oni Puri MD
[~2018-12-09] VITALS: Ht 182.9 cm; Wt 64.8 kg
[~2018-12-09 07:43] MED LIST changes: +DOCETAXEL IV ONE; -DOXY100T16 PO; +DOXY100T27 PO; +FOSAPREPITANT PERIPHERAL LINE 30 MIN INFUSION (PREMIX) IV ONE; +FOSAPREPITANT PERIPHERAL LINE 30 MIN INFUSION IV ONE; +MEDR4PAK PO; +MELO7.5T35 PO; +NS IV ONE; +PALONOSETRON 250 MCG IV IV ONE; +PEGFILGRASTIM 6MG/0.6ML ONPRO KIT (J2505 PER 6MG) (FOR ONCOLOGY) SC ONE; +RAMUCIRUMAB IV ONE; +SODIUM CHLORIDE 0.9% INJ 10 ML SYR IV PRN; +SODIUM CHLORIDE 0.9% INJ 10 ML SYR IV SCH; +ZANT150T40 PO; -ZANTTAB PO; +dexameTHASONE 10 MG IV IV ONE
[2018-12-09] MEDS ORDERED: SODIUM CHLORIDE 0.9% INJ 10 ML SYR IV PRN (08:00)
[2018-12-09 08:03] VITALS: BP 136/83
[2018-12-09 09:20] LABS: BASO % 0.8 % (0.0-1.0); EOS # 0.1 10^3/uL (0.0-0.50); HEMATOCRIT 37.9 % (42.0-52.0); HEMOGLOBIN 13.5 g/dl (13.5-17.5); LYMPH # 1.4 10^3/uL (1.5-4.5); MEAN CORPUSCULAR HEMOGLOBIN 35.9 pg (27.0-33.0); MEAN CORPUSCULAR HGB CONC 35.6 g/dl (32.0-36.5); MEAN CORPUSCULAR VOLUME 100.8 fl (80.0-96.0); MONO # 0.5 10^3/uL (0.0-0.8); MONO % 10.6 % (0.0-5.0); NEUTROPHILS # 2.8 10^3/uL (1.8-7.7); NEUTROPHILS % 58.2 % (36.0-66.0); PLATELET COUNT, AUTOMATED 144 10^3/uL (150-450); RED BLOOD COUNT 3.76 10^6/uL (4.30-6.10); WHITE BLOOD COUNT 4.8 10^3/uL (4.0-10.0)
[2018-12-09 09:45] LABS: ALBUMIN 3.7 GM/DL (3.2-5.2); ALT/SGPT 40 U/L (12-78); BILIRUBIN,TOTAL 0.4 MG/DL (0.2-1.0); BLOOD UREA NITROGEN 6 MG/DL (7-18); CALCIUM LEVEL 8.7 MG/DL (8.5-10.1); CARBON DIOXIDE LEVEL 25 MEQ/L (21-32); CHLORIDE LEVEL 102 MEQ/L (98-107); CREATININE FOR GFR 0.41 MG/DL (0.70-1.30); GLOMERULAR FILTRATION RATE > 60.0 (>56); GLUCOSE, FASTING 74 MG/DL (70-100); POTASSIUM SERUM 3.7 MEQ/L (3.5-5.1); SODIUM LEVEL 135 MEQ/L (136-145)
--- NOTE | 2018-12-10 12:02 | MEDONC ---
HEMATOLOGY/ONCOLOGY PROGRESS NOTE DATE OF SERVICE: 12/09/2018 This is a very pleasant 53-year-old gentleman who is here today on followup and evaluation of stage IV non-small cell lung carcinoma. The patient had cerebral metastases which had staged him as a stage IV. He had initially presented with an unresectable stage III multilobular right lung carcinoma that was PD-L1 low expression who had received two lines of immunotherapy. He had developed a rash in October of 2017 and had a history of very severe otitis media. The patient is now complaining of persistent hearing loss in both ears and states that he cannot truly hear and feels that this is all due to wax buildup. He is scheduled to see an ear, nose, and throat but does not have a specific scheduled date. As a result, the communication today has had to be supplemented by writing in order for him to hear appropriately. He currently does not have any complaints of any pain, cough, hemoptysis, and his weight has been stable. His treatment history is as follows: 1. Unresectable stage IIIB multilobular right carcinoma of the lung with low PD-L1 expression. Carboplatin. Right lower lobe wedge resection in July of 2016. 2. Carboplatin, Alimta, four cycles 08/2016 to 01/2017. 3. Carboplatin, Alimta, pembrolizumab times two cycles in November of 2016 to December of 2016. 4. Pembrolizumab maintenance from January of 2017 to May of 2017, stopped due to disease progression. 5. June 2016 malignant pleural effusion, treated with thoracentesis. 6. Docetaxel ramucirumab began 07/2017 with ramucirumab actually added in July of 2017. 7. Intracranial metastatic disease discovered in March of 2018 showing multiple enhancing nodular lesions, both in the cerebellum and the cerebral hemispheres, all ranging in size from 0.1 to 0.5 centimeter in the largest supratentorial left parietal lobe. Status post palliative radiation therapy. The patient's last dose of docetaxel and ramucirumab on June 02, 2018. 8. The patient's compliance has been an issue. He has had a history of polysubstance abuse in the past and has not followed up on several appointments which have been barriers to care. His past medical history is as above noted. History of polysubstance abuse, seizure disorder, alcohol abuse, bilateral hearing loss, history of depression, and stage IV adenocarcinoma of the lung. PD-L1 low expression. FAMILY HISTORY: His mother is alive. Father is . Father had a history of seizures. He has a brother who suffers from seizures, who is on Dilantin. He has a sister, who is currently in good health. She is a nurse. On the patient's medications are albuterol sulfate two puffs q.4-6 h, Cipro otic suspension four drops b.i.d., Depakote 1000 mg p.o. b.i.d., hydroxyzine hydrochloride 25 mg p.o. b.i.d., ibuprofen 600 mg one tablet t.i.d., meloxicam 7.5 mg p.o. daily, methylprednisolone 4 mg as directed, metoprolol succinate 25 mg q. 24, phenytoin sodium 100 mg capsules, Seroquel 400 mg p.o. daily, Zantac 150 mg p.o. b.i.d., Ambien 10 mg p.o. q.p.m.. The patient has no known drug allergies. On his review of systems, the patient is extremely hard of hearing. Complains that he has wax in his ears. He has no complaint of any ear pain. Denies any history of seizures. Has no visual disturbances. No problems swallowing. He has no nausea, vomiting, no diarrhea or any constipation. He relates that his skin rash is completely gone that he had prior to coming approximately 2-3 months ago, which was felt to be due to the Cyramza therapy. On his physical examination, his ECOG is 1/4. His weight is 64.8, BSA is 1.80, BMI is 19.4, and height is 182 cm. Temperature is 97.5. Blood pressure is 136/83. Pulse is 109. Respiratory rate is 18. Pulse oximetry is 100. His HEENT is normocephalic, atraumatic. PERRL. EOMI. Sclerae otherwise white, it is anicteric. His ear canal on the right shows a lot of wax. His ear canal appears to be fairly well cleaned. All of the tympanic membrane was not completely visualized. On the left, the patient has some wax still impacted against the left tympanic membrane. Oropharynx is clear. He is partially edentulous. His neck is otherwise supple. His chest is clear to auscultation and percussion. Cardiovascular: S1 and S2 are appreciated with no murmurs. His abdomen is otherwise soft. It is nontender. His extremities show no cyanosis, no clubbing, or any edema. On his laboratories, the patient has a WBC count of 4.8, hemoglobin 13.5 over hematocrit 37.9, MCV is 100.8, RDW is 12.1, platelets are 144, neutrophils are 58, lymphocytes are 29. IMPRESSION: At this time is stage IV non-small cell lung carcinoma with intermittent compliance to his regimen. Hearing loss, possibly due to impacted wax as opposed to possible hearing loss from prior chemotherapies and/or trauma. PLAN: The patient needs to be restaged with a CT scan of the chest and abdomen. Also for audiometry, as well as to assess whether or not he needs his ears completely cleaned, since he has had a near life-threatening ear infection in the past. It is best that he follows up with ear, nose, and throat for this particular process. He had a staph epidermidis infection that was quite severe and had held up some of his treatment and then followup with psychiatry regarding behavioral issues. The patient may need to have counseling during the course of his therapy, as he may have an underlying issue with his compliance, and that should be addressed. Electronically Signed by Carole Dunn MD 12/13/2018 10:04 A DD: Carole Dunn MD 12/09/2018 09:30 A DT: mi 12/10/2018 11:33 A CC: Oni Bey MD
== END 2018-12-09 08:30 | disposition home or self-care (01) ==
LOC: M ONCM 07:43
PROVIDERS: ATTEND Internal Medicine Hematology & Oncology
DX: C71.6 Malignant neoplasm of cerebellum (principal); C78.01 Secondary malignant neoplasm of right lung; Z79.899 Other long term (current) drug therapy; H90.3 Sensorineural hearing loss, bilateral; R21 Rash and other nonspecific skin eruption; C34.91 Malignant neoplasm of unspecified part of right bronchus or lung; M54.6 Pain in thoracic spine; H66.92 Otitis media, unspecified, left ear; B95.8 Unspecified staphylococcus as the cause of diseases classified elsewhere; R05 Cough
CPT/HCPCS: 36415; 36591; 80053; 82378; 83615; 84443; 85027; 96367; 96375; 96377; 96413; 99213; 99214; 99215; G0463; J1100; J1453; J1642; J2469; J2505; J9171; J9308